=== PATIENT | female | born 1955 | race Caucasian/White ===

== ENCOUNTER 2017-07-12 15:48 | Emergency (ER) | payer BC ==
[~2017-07-12] VITALS: Ht 162.6 cm; Wt 80.7 kg
[~2017-07-12 15:48] MED LIST: ASPIRIN81 MG PO; BYSTOLIC10 MG PO; DOXEPIN PO; LITHIUM PO; LORTAB 7.51 EA GT; LOSARTAN POTASS25 MG PO; METFORMIN HCL500 MG PO; SIMVASTATIN20 MG PO; TRIAZOLAM PO; Z.0.BYSTOLIC10 MG PO; Z.0.EFFEXOR XR150 MG PO; Z.0.LOVENOX40 MG/0.4 SQ; Z.0.VESICARE10 MG PO
--- OUTSIDE RECORDS SUMMARY | 2017-07-12 15:51 | XMS REPORT | Clinical Summary ---
Author Author [facility] Organization [facility] Address Unknown Phone Unavailable Care Team Providers Care Hose Inspector Name Role Phone Asked, Given PCP Unavailable Allergies No Known Allergies Current Medications Prescription Sig. Disp. Refills Start End Date Status Date venlafaxine XR Take 300 mg by mouth Active (EFFEXOR-XR) 150 MG 24 hr daily. capsule lithium 150 MG capsule Take 300 mg by mouth Active daily. nebivolol (BYSTOLIC) 10 Take 10 mg by mouth Active MG tablet daily. metFORMIN (GLUCOPHAGE) Take 500 mg by mouth. Active 500 MG tablet losartan (COZAAR) 50 MG Take 50 mg by mouth Active tablet daily. aspirin (ECOTRIN) 81 MG Take 81 mg by mouth Active enteric coated tablet daily. Active Problems Problem Noted Date Chest pain 11/04/2015 Family History Medical History Relation Name Comments No Known Problems Mother Relation Name Status Comments Father DM Mother Social History Tobacco Use Types Packs/Day Years Used Date Current Every Day Smoker Cigarettes Tobacco Cessation: Ready to Quit: Yes; Counseling Given: Yes Comments: 5 cigaret daily pt stated Alcohol Use Drinks/Week oz/Week Comments No Sex Assigned at Date Recorded Not on file Last Filed Vital Signs Not on file Plan of Treatment Not on file Implants Implanted Type Area General Road Production Manager Device Expiration Model / Identifier Date Serial / Lot Device Vasclr Clsr Vasoactive Surgical DAIG EDSON 08/02/2016 [id number] / Intstnl Peptd 6fr Angio-Seal - Implants; / [id number] Expanders; [id number] Implanted: 11/04/2015 (Quantity not Extenders; on file) Surgical Wires Results Not on fileafter 07/11/2016 Insurance Payer Benefit Subscriber ID Type Phone Address Plan / Group [facility] [id number] HMO/PPO THCARE CHOICE/CHO ICE + [facility] EXCHANGE [facility] [id number] Exchange [employer] [place]
--- OUTSIDE RECORDS SUMMARY | 2017-07-12 15:51 | XMS REPORT ---
Author Author [facility] Address Unknown Phone Unavailable Care Team Providers Care Oracle Engineer Name Role Phone ENMA SEE Unavailable Unavailable Problems This patient has no known problems. Allergies, Adverse Reactions, Alerts This patient has no known allergies or adverse reactions. Medications This patient has no known medications. Results Test Description Test Time Test Comments Text Results Atomic Results Result Comments CERVICAL SPINE 4 OR 5 VIEWS [place] [address] Patient Name: WOLFGANG SPENCER MR #: [id number] : 1955 Age/Sex: 61/F Req #: [id number] [facility] Physician: Ordered by: ENMA SEE MD Report #: [id number] Location: [facility] Room/Bed: Procedure: [id number] DX/CERVICAL SPINE 4 OR 5 VIEWS Exam Date: 03/10/17 Exam Time: 1225 REPORT STATUS: Signed PROCEDURE: CERVICAL SPINE COMPLETE TECHNIQUE: AP, lateral, open mouth and oblique views cervical spine totaling 5 radiographs INDICATION: Neck pain COMPARISON: None. FINDINGS: Cervical spine evaluated from the skull base through the cervicothoracic junction. Loss of normal cervical lordosis. Disc space narrowing at C3-C4, C4-C5, C6-C7 with associated anterior osteophytosis. C5-C6 and C6-C7 facet and uncovertebral arthropathy with C6-C7 left neural foramen joint space narrowing. Regional soft tissues are normal. CONCLUSION: Multilevel degenerative disc disease, facet and uncovertebral arthropathy resulting in neural foramen stenosis. Consider MRI in the clinical setting of radiculopathy. Dictated by: Zachariah Perez M.D. on 03/10/2017 at 12:50 Electronically approved by: Zachariah Perez M.D. on 03/10/2017 at 12:50 Dictated By: ZACHARIAH PEREZ MD 1250 Transcribed By: BRIJESH on 03/10/17 1250 COPY TO: ENMA SEE MD
[2017-07-12] MEDS ORDERED: SODIUM CHLORIDE 0.9% 1000ML 1,000 ML IV ONE ×2 (16:15→21:15)
[2017-07-12 16:31] LABS: BASOPHILS # (AUTO) 0.1 (0.0-0.1); BASOPHILS % 0.7 % (0.0-1.0); EOSINOPHILS # (AUTO) 0.2 (0.0-0.4); EOSINOPHILS % 1.7 % (0.0-6.0); HEMATOCRIT 37.2 % (34.2-44.1); HEMOGLOBIN 11.5 g/dL (12.0-16.0); LYMPHOCYTES # (AUTO) 2.1 (1.0-3.2); LYMPHOCYTES % 19.5 % (18.0-39.1); MEAN CORPUSCULAR HEMOGLOBIN 27.6 pg (28-32); MEAN CORPUSCULAR HGB CONC 30.9 g/dL (31-35); MEAN CORPUSCULAR VOLUME 89.4 fL (81-99); MONOCYTES # (AUTO) 0.5 (0.2-0.8); MONOCYTES % 4.6 % (4.4-11.3); PLATELET COUNT 435 x10e3/uL (140-360); RED BLOOD COUNT 4.16 x10e6/uL (3.6-5.1); RED CELL DISTRIBUTION WIDTH 14.8 % (11.7-14.4)
[2017-07-12 16:38] LABS: INR 0.85; PARTIAL THROMBOPLASTIN TIME 26.7 seconds (23.8-35.5)
[2017-07-12 16:46] LABS: ALANINE AMINOTRANSFERASE 17 IU/L (0-55); ALBUMIN 3.6 g/dL (3.5-5.0); ALKALINE PHOSPHATASE 89 IU/L (40-150); BLOOD UREA NITROGEN 10 mg/dL (7-26); BUN/CREATININE RATIO 11 (6-25); CALCIUM 9.2 mg/dL (8.4-10.2); CARBON DIOXIDE 23 mmol/L (22-29); CHLORIDE 109 mmol/L (98-107); CREATININE, SERUM 0.88 mg/dL (0.57-1.11); EST GLOMERULAR FILTRATION RATE > 60 ML/MIN (60-); GLUCOSE 122 mg/dL (74-118); MAGNESIUM 1.7 MG/DL (1.3-2.1); PHOSPHORUS 3.7 MG/DL (2.3-4.7); SODIUM 143 mmol/L (136-145)
--- NOTE | 2017-07-12 17:27 | Diagnostic Imaging Report ---
PROCEDURE: Frontal and lateral views of the chest. COMPARISON: 07/29/16 INDICATIONS: CHEST PAINS FINDINGS: Lines/tubes: None. Lungs: The lungs are well inflated and clear. There is no evidence of pneumonia or pulmonary edema. Pleura: There is no pleural effusion or pneumothorax. Heart and mediastinum: The heart and the mediastinum are normal. Bones: No acute bony abnormality. Left humeral head anchor screws are again seen. IMPRESSION: 1. No acute cardiopulmonary disease. Dictated by: Macario Atkins M.D. on 07/12/2017 at 17:36 Electronically approved by: Macario Atkins M.D. on 07/12/2017 at 17:36
--- NOTE | 2017-07-12 17:42 | Diagnostic Imaging Report ---
ADDENDUM #1 Mildly patulous esophagus with wall thickening. Recommend GI consult. Signed by: Dr. Macario Atkins MD on 07/12/2017 6:31 PM ORIGINAL REPORT EXAM: CT Chest WITH contrast (PE Protocol) INDICATION: \S\Rule out Pulmonary Embolism \[id number] \S\1709 \S\N COMPARISON: None TECHNIQUE: Chest was scanned utilizing a multidetector helical scanner from the lung apex through the level of the diaphragm after administration of IV contrast. Thin section reconstructions were obtained with special concentration on the pulmonary arteries. Coronal and sagittal reformations were obtained. Pulmonary embolism protocol was performed. IV CONTRAST: 100 mL of Isovue-370 COMPLICATIONS: None RADIATION DOSE: Total DLP: 514.1 mGy*cm Estimated effective dose: (DLP x 0.014 x size factor) mSv CTDIvol has been reviewed. It is below the limits set by the Radiation Protocol Committee (RPC). FINDINGS: LINES/ TUBES: None. LUNGS AND AIRWAYS: No filling defect is identified within the pulmonary arteries to the segmental level. The lungs are unremarkable. Airways are normal. PLEURA: The pleural spaces are clear. Bilateral posterior lower lobe mild pleural thickening/irregularity, right more than left, which could represent subsegmental atelectasis. HEART AND MEDIASTINUM: Heterogeneous thyroid gland with an approximately 1.4 cm hypodense nodule in the isthmus. No mediastinal, hilar or axillary lymphadenopathy. Nonspecific subcentimeter mediastinal and hilar lymph nodes. The heart is normal in size.. There is no pericardial effusion. . Main pulmonary artery measures 2.4 cm in diameter and the ascending aorta measures 3 cm. UPPER ABDOMEN: Unremarkable BONES: The visualized bony thorax is within normal limits. Left humeral head anchor screws. SOFT TISSUES: Unremarkable. IMPRESSION: No evidence of pulmonary embolism. Thyroid nodule. Recommend further evaluation with nonurgent thyroid ultrasound. Signed by: Dr. Macario Atkins MD on 07/12/2017 5:39 PM
[2017-07-12] MEDS ORDERED: FAMOTIDINE 20 MG/2 ML VIAL IV STA (18:05)
[2017-07-12] MEDS ORDERED: MORPHINE SULFATE 2 MG/ML SYR IV STA (18:09)
[2017-07-12] MEDS ORDERED: SUCRALFATE 1 GM/10 ML SUSP NG ONE (18:30)
[2017-07-12] MEDS ORDERED: METOCLOPRAMIDE HCL 10 MG/2ML VIAL IV ONE (18:30)
[2017-07-12] MEDS ORDERED: KETOROLAC TROMETHAMINE 30 MG/ML VIAL IV ONE (18:45)
[2017-07-12] MEDS ORDERED: SODIUM CHLORIDE 0.9% 1000ML 1,000 ML ONE (19:12)
[2017-07-12] MEDS ORDERED: SODIUM CHLORIDE 0.9% 1000ML 1,000 ML IV SCH (19:15)
[2017-07-12] MEDS ORDERED: SODIUM CHLORIDE 0.9% 50ML 50 ML ONE (20:14)
[2017-07-12] MEDS ORDERED: IOPAMIDOL 370 MG/ML 200 ML INFUS..BTL INJ ONE (20:14)
--- NOTE | 2017-07-12 20:43 | Diagnostic Imaging Report ---
EXAM: Thyroid Ultrasound INDICATION: \S\Thyroid Nodule \S\N COMPARISON: Same-day chest CT. TECHNIQUE: Transverse and sagittal images were obtained of the thyroid gland. FINDINGS: Thyroid gland: Size: Right lobe 5.9 x 2.6 x 2.4 cm, enlarged in size Left lobe 5.4 x 1.7 x 2 cm, Normal in size Isthmus 0.5 cm, Normal in size Appearance: Heterogeneous echotexture without increased vascularity Masses/Nodules: Right lobe: * Superior pole 0.8 x 0.8 x 0.9 cm nodule, predominantly cystic (TR 2) * Interpolar 1.4 x 1.1 x 2.1 cm nodule, predominantly solid, isoechoic with macrocalcification (TR 4) * Inferior pole 1.5 x 0.8 x 1.6 cm nodule, mixed cystic and solid with isoechoic solid components (TR 2) Left lobe: * Interpolar 2 x 1.4 x 1.5 cm nodule, predominantly solid, isoechoic (TR 3) * Interpolar 1.7 x 1.6 x 1.4 cm nodule, solid and isoechoic, taller more than wide (TR 4) * Inferior pole 1.3 x 1 x 0.7 cm nodule, predominantly cystic (TR 2) Isthmus: * Inferior pole 1.9 x 1 x 1.9 cm nodule, predominantly cystic (TR 2) Parathyroid: No focal parathyroid masses. IMPRESSION: Multiple thyroid nodules as detailed above. A nodule in the left lobe meets criteria for FNA (left #2). Recommend follow-up ultrasound in 12 months for some of the remaining nodules. Signed by: DR. Cresencio Ramesh MD on 07/12/2017 8:39 PM
[2017-07-12 22:47] VITALS: BP 95/65
== END 2017-07-12 23:02 | disposition home or self-care (01) ==
LOC: ER 15:48
DX: R07.89 Other chest pain (principal); E04.1 Nontoxic single thyroid nodule; I10 Essential (primary) hypertension
CPT/HCPCS: 36415; 71046; 71260; 76536; 80053; 82948; 83605; 83735; 83880; 84100; 84443; 84484; 85025; 85379; 85610; 85730; 93005; 99284; J1885; J2765; J7030; Q9967

== ENCOUNTER → 2017-09-20 | Day surgery (SDC) | payer BC ==
[~2017-09-20] MED LIST changes: +ATENOLOL50 MG PO; +FENTANYL CITRATE/PF 100MCG/2 ML INJ ONE; +MIDAZOLAM HCL 2 MG/2 ML VIAL ONE; +MORPHINE SULFATE 2 MG/ML SYR ONE; +PANTOPRAZOLE SO40 MG PO; +PLAVIX75 MG PO; +PROPOFOL IV EMULSION 10 MG/ML 50 ML VIAL ONE; +VIT B12 INJ; +VIT D PO
--- OUTSIDE RECORDS SUMMARY | 2017-09-20 11:40 | XMS REPORT | Clinical Summary ---
Author Author [facility] Organization [facility] Address Unknown Phone Unavailable Care Team Providers Care Paradichlorobenzene Tender Name Role Phone Asked, Given PCP Unavailable [...] Not on file Implants Implanted Type Area Dispatcher Maintenance Device Expiration Model / Identifier Date Serial / Lot Device Vasclr Clsr Vasoactive Surgical DAIG EDSON 08/02/2016 [id number] / Intstnl Peptd 6fr Angio-Seal - Implants; / [id number] Expanders; [id number] Implanted: 11/04/2015 (Quantity not Extenders; on file) Surgical Wires Results Not on fileafter 09/19/2016 Insurance Payer Benefit Subscriber ID Type Phone Address Plan / Group [facility] xxxxxxxxx HMO/PPO THCARE CHOICE/CHO ICE + [facility]HC EXCHANGE [facility] x[facility] Exchange [employer] Home: [id number] [place] [address]
--- OUTSIDE RECORDS SUMMARY | 2017-09-20 11:40 | XMS REPORT | Continuity of Care Document ---
Author Author [facility] Organization [facility] Address [address] [place] [address] Phone Unavailable Care Team Providers Care Can Maker Name Role Phone ENMA SEE MD PCP Insurance Providers Guarantor Wolfgang Spencer Address [address] [place] [address] Email [email or web address] Payer Blue [employer] Exchange Policy Number [id number] Subscriber's Name Wolfgang Spencer Relationship 18 Self / Same As Patient Group Number [id number] Effective Date 17 Expiration Date 16 Advance Directives Directive Response Recorded Date/Time Does the patient have an advance directive? No 07/12/17 5:18pm If yes, is advance directive on file with [facility]? No 01/30/12 10:10am If not on file with [facility] will patient provide a copy? No 07/12/17 5:18pm Do you have a Directive to Physician? No 07/12/17 5:18pm Do you have a Medical Power of Autoglazier? No 07/12/17 5:18pm Do you have an out of hospital Do Not Resuscitate Order? No 07/12/17 4:59pm Do you have any special needs we should be aware of? No 07/12/17 4:59pm Do you have a support person here with you today? Yes 07/12/17 5:18pm Did patient receive Notice of Privacy Practices? Yes 07/12/17 4:59pm Did patient receive patient rights and responsibilities? Yes 07/12/17 4:59pm Problems No problem information available. Medications Current Home Medications Medication Dose Units Route Directions Days Qty Instructions Start Date Aspirin 81 Mg Tab.chew 81 Mg Oral Daily Doxepin Oral As Needed as needed for Sleep [place] 300 Mg Oral Twice A Day Metformin Hcl 500 Mg Tablet 500 Mg Oral Twice A Day 60 Tab Simvastatin 20 Mg Tablet 20 Mg Oral Today At 9:00PM Venlafaxine Hcl (Effexor Xr) 150 Mg Cap.sr.24h 150 Mg Oral Daily Past Home Medications Medication Directions Ordered Status Acetaminophen/Hydrocodone (Lortab 7.5) 1 Ea Tab, 1 Ea G Tube Every 4 Hours as needed Discontinued Enoxaparin Sodium (Lovenox) 40 Mg/0.4 Ml Disp.syrin, 40 Mg Sub-Q Daily Discontinued Losartan Potassium 25 Mg Tablet, 50 Mg Oral Daily Discontinued Nebivolol Hcl (Bystolic) 10 Mg Tablet, 10 Mg Oral Daily Discontinued Nebivolol Hcl (Bystolic) 10 Mg Tablet, 10 Mg Oral Daily Discontinued Solifenacin Succinate (Vesicare) 10 Mg Tablet, 10 Mg Oral Daily Discontinued Triazolam 0.25 Mg Tablet, 0.25 Mg Oral Bedtime Discontinued Social History Social History Problem Response Recorded Date/Time Onset Date Status Hx Psychiatric Problems Yes 01/30/2012 10:10am Not Applicable Not Applicable Hx Depression Yes 01/30/2012 10:10am Not Applicable Not Applicable Smoking Status Start Date Stop Date Former smoker Hospital Discharge Instructions No hospital discharge instruction information available. Plan of Care Discharge Date 07/12/17 11:02pm Disposition HOME, SELF-CARE Condition at Discharge Stable Instructions/Education Provided Chest Pain - Noncardiac Thyroid Scan Forms Provided Work/School Excuse Prescriptions See Medication Section Referrals ENMA SEE MD Order Date: Call for an appointment Address: [address] [place] [id number] Additional Instructions/Education DC HOME FOLLOW UP WITH PCP TAKE MEDS DIRECTED RETURN TO THE ER WITH ANY EMERGENT CONDITIONS Functional Status No functional status information available. Allergies, Adverse Reactions, Alerts Allergen Type Severity Reaction Status Last Updated PLASTIC TAPE Allergy Mild RASH Active 11/24/09 Immunizations No immunization information available. Vital Signs Acute Vital Signs Vital Response Date/Time Temperature (Fahrenheit) 98.2 degrees F (97.6 - 99.5) 07/12/2017 10:47pm Pulse Pulse Rate (adult) 72 bpm (60 - 90) 07/12/2017 10:47pm Respiratory Rate 12 bpm (12 - 24) 07/12/2017 10:47pm Blood Pressure 95/65 mm Hg 07/12/2017 10:47pm Height 5 ft 4 in 07/12/2017 3:57pm Weight 178 lb 07/12/2017 3:57pm Body Mass Index 30.6 kg/m^2 07/12/2017 3:57pm Results Laboratory Results Test Name Result Units Flags Reference Collection Date/Time Result Date/ Time Comments White Blood Count 10.95 x10e3/uL H 4.8-10.8 07/12/2017 4:15pm 2017 4:31pm Red Blood Count 4.16 x10e6/uL 3.6-5.1 07/12/2017 4:15pm 07/12/2017 4: 31pm Hemoglobin 11.5 g/dL L 12.0-16.0 07/12/2017 4:15pm 07/12/2017 4:31pm Hematocrit 37.2 % 34.2-44.1 07/12/2017 4:15pm 07/12/2017 4:31pm Mean Corpuscular Volume 89.4 fL 81-99 07/12/2017 4:1507/12/2017 4: 31pm Mean Corpuscular Hemoglobin 27.6 pg L 28-32 07/12/2017 4:15pm 2017 4:31pm Mean Corpuscular Hemoglobin Concent 30.9 g/dL L 31-35 07/12/2017 4:15pm 07/12/2017 4:31pm Red Cell Distribution Width 14.8 % H 11.7-14.4 07/12/2017 4:15pm 2017 4:31pm Platelet Count 435 x10e3/uL H 140-360 07/12/2017 4:15pm 07/12/2017 4: 31pm Neutrophils (%) (Auto) 73.0 % 38.7-80.0 07/12/2017 4:15pm 07/12/2017 4: 31pm Lymphocytes (%) (Auto) 19.5 % 18.0-39.1 07/12/2017 4:15pm 07/12/2017 4: 31pm Monocytes (%) (Auto) 4.6 % 4.4-11.3 07/12/2017 4:15pm 07/12/2017 4: 31pm Eosinophils (%) (Auto) 1.7 % 0.0-6.0 07/12/2017 4:15pm 07/12/2017 4: 31pm Basophils (%) (Auto) 0.7 % 0.0-1.0 07/12/2017 4:15pm 07/12/2017 4:31pm IM GRANULOCYTES % 0.5 % 0.0-1.0 07/12/2017 4:15pm 07/12/2017 4:31pm Neutrophils # (Auto) 8.0 H 2.1-6.9 07/12/2017 4:15pm 07/12/2017 4: 31pm Lymphocytes # (Auto) 2.1 1.0-3.2 07/12/2017 4:15pm 07/12/2017 4:31pm Monocytes # (Auto) 0.5 0.2-0.8 07/12/2017 4:15pm 07/12/2017 4:31pm Eosinophils # (Auto) 0.2 0.0-0.4 07/12/2017 4:15pm 07/12/2017 4:31pm Basophils # (Auto) 0.1 0.0-0.1 07/12/2017 4:15pm 07/12/2017 4:31pm Absolute Immature Granulocyte (auto 0.06 x10e3/uL 0-0.1 07/12/2017 4: 15pm 07/12/2017 4:31pm Prothrombin Time 12.0 seconds 11.9-14.5 07/12/2017 4:15pm 07/12/2017 4: 42pm Prothromb Time International Ratio 0.85 07/12/2017 4:15pm 2017 4:42pm Oral Anticoagulant Therapy INR Values: 1. Low Intensity Therapy 1.5 - 2.0 2. Moderate Intensity Therapy 2.0 - 3.0 3. High Intensity Therapy(1) 2.5 - 3.5 4. High Intensity Therapy(2) 3.0 - 4.0 5. Panic Value INR > 5.0 Activated Partial Thromboplast Time 26.7 seconds 23.8-35.5 07/12/2017 4: 15pm 07/12/2017 4:42pm D-Dimer Quantitative (PE/DVT) 0.55 ug/mLFEU H 0.00-0.45 07/12/2017 4: 15pm 07/12/2017 4:42pm As with all in vitro diagnostic tests, the test results should be interpreted by the physician in conjunction with clinical findings and other test results. Test results are reported in NEW D-dimer units(ug/mLFEU). Sodium Level 143 mmol/L 136-145 07/12/2017 4:15pm 07/12/2017 4:52pm Potassium Level 4.0 mmol/L 3.5-5.1 07/12/2017 4:15pm 07/12/2017 4:52pm Chloride Level 109 mmol/L H 98-107 07/12/2017 4:15pm 07/12/2017 4:52pm Carbon Dioxide Level 23 mmol/L 22-29 07/12/2017 4:15pm 07/12/2017 4: 52pm Anion Gap 15.0 mmol/L 8-16 07/12/2017 4:15pm 07/12/2017 4:52pm Blood Urea Nitrogen 10 mg/dL 7-07/12/2017 4:15pm 07/12/2017 4:52pm Creatinine 0.88 mg/dL 0.57-1.11 07/12/2017 4:15pm 07/12/2017 4:52pm BUN/Creatinine Ratio 11 6-25 07/12/2017 4:15pm 07/12/2017 4:52pm Estimat Glomerular Filtration Rate > 60 ML/MIN 60- 07/12/2017 4:15pm 4:52pm Ranges were taken from the National Kidney Disease Education Program and the National Kidney Foundation literature. Reference ranges: 60 or greater: Normal 16-59 (for 3 consecutive months): Chronic kidney disease 15 or less: Kidney failure Glucose Level 122 mg/dL H 74-118 07/12/2017 4:15pm 07/12/2017 4:52pm Calcium Level 9.2 mg/dL 8.4-10.2 07/12/2017 4:15pm 07/12/2017 4:52pm Bedside Glucose 135 mg/dL H 70-120 07/12/2017 4:15pm 07/12/2017 4:27pm Meter ID: [id number] Lactic Acid Level 14.9 MG/DL 4.5-19.8 07/12/2017 4:26pm 07/12/2017 4: 53pm Phosphorus Level 3.7 MG/DL 2.3-4.7 07/12/2017 4:15pm 07/12/2017 4:52pm Magnesium Level 1.7 MG/DL 1.3-2.1 07/12/2017 4:15pm 07/12/2017 4:52pm Total Bilirubin 0.3 mg/dL 0.2-1.2 07/12/2017 4:15pm 07/12/2017 4:52pm Aspartate Amino Transf (AST/SGOT) 19 IU/L 5-34 07/12/2017 4:15pm 2017 4:52pm Alanine Aminotransferase (ALT/SGPT) 17 IU/L 0-55 07/12/2017 4:15pm 12/2017 4:52pm Total Protein 7.2 g/dL 6.5-8.1 07/12/2017 4:15pm 07/12/2017 4:52pm Albumin 3.6 g/dL 3.5-5.0 07/12/2017 4:15pm 07/12/2017 4:52pm Globulin 3.6 g/dL H 2.3-3.5 07/12/2017 4:15pm 07/12/2017 4:52pm Albumin/Globulin Ratio 1.0 0.8-2.0 07/12/2017 4:15pm 07/12/2017 4: 52pm Alkaline Phosphatase 89 IU/L 40-150 07/12/2017 4:15pm 07/12/2017 4: 52pm B-Type Natriuretic Peptide 12.7 pg/mL 0-100 07/12/2017 4:10pm 2017 4:53pm Troponin I 0.009 ng/mL 0-0.300 07/12/2017 6:30pm 07/12/2017 7:06pm Thyroid Stimulating Hormone (TSH) 0.339 uIU/mL L 0.350-4.940 07/12/2017 6 :30pm 07/12/2017 8:08pm Procedures Procedure Status Date Provider(s) EGD BIOPSY SINGLE/MULTIPLE Completed 11/26/16 TRAVIS WEBBER MD COLONOSCOPY W/LESION REMOVAL Completed 11/26/16 TRAVIS WEBBER MD COLONOSCOPY W/LESION REMOVAL Completed 11/26/16 TRAVIS WEBBER MD X-ray of chest, two views Active 07/12/17 SCOTT ALBERTS MD Computed tomography of chest with contrast Active 07/12/17 SCOTT ALBERTS MD US thyroid Active 07/12/17 SCOTT ALBERTS MD Encounters Encounter Location Arrival/Admit Date Discharge/Depart Date Attending Provider Departed Emergency Room [facility] 07/12/17 3:48pm 11:02pm SCOTT ALBERTS MD Registered Clinic [facility] 03/10/17 12:05pm ENMA SEE MD Registered Surgical Day Care [facility] 11/26/16 11:30am TRAVIS WEBBER MD
--- NOTE | 2017-09-21 07:55 | Operative Report ---
DATE OF PROCEDURE: September 20, 2017 REFERRING PHYSICIAN: Dr. Leobardo Tracy PROCEDURE PERFORMED: Esophagogastroduodenoscopy with biopsies. INDICATIONS FOR PROCEDURE: History of submucosal nodule, stomach. MEDICATION: Patient was done under MAC. Please see anesthesiologist's note. PROCEDURE: With patient in left lateral decubitus position, flexible fiberoptic Olympus gastroscope was introduced into the esophagus without any difficulty. There was some patchy erythema noted in distal esophagus. A minute tongue of velvety red mucosa was noted to extend proximally from the GE junction. No biopsies were obtained as this was biopsied approximately 1 year ago and was unremarkable. The scope was then advanced with ease into the stomach traversing a small sliding hiatal hernia. The mucosa overlying the antrum and the body revealed some diffuse erythema and moderate edema and biopsies were obtained, sent to stain for H. pylori. The pylorus was of normal contour and shape, was intubated with ease and the scope was advanced all the way to the 2nd portion of the duodenum. The scope was then withdrawn slowly. Mucosa overlying the proximal 2nd portion as well as the duodenal bulb was grossly unremarkable. The scope was then withdrawn back into the stomach and retroflexed, and the fundus appeared to be within normal limits. The previously described submucosal nodule was noted and that was extensively biopsied. The scope was then straightened out. It was subsequently withdrawn. Patient tolerated the procedure well. IMPRESSION 1. Distal esophagitis, mild. 2. Small sliding hiatal hernia. 3. Gastritis biopsied. Biopsies sent to stain for H. pylori. 4. Submucosal nodule upper body posterior wall extensively biopsied. PLAN: Follow up histology. Increase Protonix to 40 mg one p.o. a.c. b.i.d. Job#: [id number] DG cc:LEOBARDO TRACY MD
== END | disposition home or self-care (01) ==
LOC: OR 11:38
PROVIDERS: ATTEND Internal Medicine Gastroenterology
DX: K29.70 Gastritis, unspecified, without bleeding (principal); K31.7 Polyp of stomach and duodenum; K31.89 Other diseases of stomach and duodenum; K20.9 Esophagitis, unspecified; K44.9 Diaphragmatic hernia without obstruction or gangrene; K21.9 Gastro-esophageal reflux disease without esophagitis; E11.9 Type 2 diabetes mellitus without complications; I10 Essential (primary) hypertension; F31.9 Bipolar disorder, unspecified; Z91.048 Other nonmedicinal substance allergy status; Z79.82 Long term (current) use of aspirin; Z87.891 Personal history of nicotine dependence
CPT/HCPCS: 43239; J2250; J2270

== ENCOUNTER 2017-10-16 11:46 | Inpatient (IN) | payer BC ==
[~2017-10-16] VITALS: Ht 162.6 cm; Wt 83.1 kg
[2017-10-16] VITALS (12 sets, daily range): BP systolic 79–114; BP diastolic 49–76
[~2017-10-16 11:46] MED LIST changes: -FENTANYL CITRATE/PF 100MCG/2 ML INJ ONE; -MIDAZOLAM HCL 2 MG/2 ML VIAL ONE; -MORPHINE SULFATE 2 MG/ML SYR ONE; -PROPOFOL IV EMULSION 10 MG/ML 50 ML VIAL ONE
--- OUTSIDE RECORDS SUMMARY | 2017-10-16 11:49 | XMS REPORT | Clinical Summary ---
Author Author [facility] Organization [facility] Address Unknown Phone Unavailable Care Team Providers Care Research Technologist Name Role Phone Asked, Given PCP Unavailable [...] Not on file Implants Implanted Type Area Alkylation Operator Device Expiration Model / Identifier Date Serial / Lot Device Vasclr Clsr Vasoactive Surgical DAIG EDSON 08/02/2016 [id number] / Intstnl Peptd 6fr Angio-Seal - Implants; / [id number] Expanders; [id number] Implanted: 11/04/2015 (Quantity not Extenders; on file) Surgical Wires Results Not on fileafter 10/15/2016 Insurance Payer Benefit Subscriber ID Type Phone Address Plan / Group [facility] xxxxxxxxx HMO/PPO THCARE CHOICE/CHO ICE + UHC EXCHANGE [facility] xxxxxxxxx Exchange [employer] Home: [id number] [place] [address]
[2017-10-16] MEDS ORDERED: NALOXONE HCL INJ 0.4 MG/ML AMP IV ONE ×2 (12:15→13:30)
[2017-10-16] MEDS ORDERED: SODIUM CHLORIDE 0.45% 1,000 ML IV ONE (12:15)
[2017-10-16] MEDS ORDERED: TYLENOL WITH C1 EACH PO (14:43)
[2017-10-16] MEDS ORDERED: VANCOMYCIN HCL 1 GM VIAL IV ONE (15:15)
[2017-10-16] MEDS ORDERED: SODIUM CHLORIDE FLUSH 10 ML SYR INJ PRN (16:30)
--- OUTSIDE RECORDS SUMMARY | 2017-10-16 17:39 | XMS REPORT | Clinical Summary ---
Author Author [facility] Organization [facility] Address Unknown Phone Unavailable Care Team Providers Care Film Crew Member Name Role Phone Asked, Given PCP Unavailable [...] Not on file Implants Implanted Type Area Crowning Hammer Operator Device Expiration Model / Identifier Date Serial / Lot Device Vasclr Clsr Vasoactive Surgical DAIG EDSON 08/02/2016 [id number] / Intstnl Peptd 6fr Angio-Seal - Implants; / [id number] Expanders; [id number] Implanted: 11/04/2015 (Quantity not Extenders; on file) Surgical Wires Results Not on fileafter 10/15/2016 Insurance Payer Benefit Subscriber ID Type Phone Address Plan / Group [facility] x[facility] HMO/PPO THCARE CHOICE/CHO ICE + [facility]HC [facility] x[facility] Exchange [employer] Home: [id number] [place] [address]
[2017-10-16] MEDS ORDERED: CEFAZOLIN SOD 1 GM/NS 50ML 50 ML IV SCH (18:00)
[2017-10-16] MEDS ORDERED: CEFAZOLIN SOD 1 GM in WATER STERILE 10ML VIAL 10 ML IV SCH (18:00)
[2017-10-16] MEDS ORDERED: CEFAZOLIN SOD 1 GM VIAL ONE (23:41)
[2017-10-17] VITALS (75 sets, daily range): BP systolic 59–131; BP diastolic 36–86
[2017-10-17] MEDS ORDERED: KCL 20MEQ/.9 SOD CHL 1,000 ML IV ONE (04:50)
[2017-10-17] MEDS ORDERED: SODIUM CHLORIDE 0.9% 1000ML 1,000 ML ONE ×2 (04:51→06:16)
[2017-10-17 05:20] LABS: CALCIUM 8.9 mg/dL (8.4-10.2); CHOL/HDL RATIO 3.8 (3.0-3.6); CREATININE, SERUM 2.33 mg/dL (0.57-1.11); MAGNESIUM 2.2 MG/DL (1.3-2.1); PHOSPHORUS 5.1 MG/DL (2.3-4.7)
[2017-10-17] MEDS: SODIUM CHLORIDE 0.9% 1000ML 1,000 ML IV PRN ×2 (07:00→09:00)
[2017-10-17 07:07] LABS: BASOPHILS % 0.4 % (0.0-1.0); EOSINOPHILS # (AUTO) 0.3 (0.0-0.4); EOSINOPHILS % 2.7 % (0.0-6.0); HEMATOCRIT 28.4 % (34.2-44.1); HEMOGLOBIN 8.9 g/dL (12.0-16.0); LYMPHOCYTES # (AUTO) 2.2 (1.0-3.2); LYMPHOCYTES % 20.3 % (18.0-39.1); MEAN CORPUSCULAR HEMOGLOBIN 28.3 pg (28-32); MEAN CORPUSCULAR HGB CONC 31.3 g/dL (31-35); MEAN CORPUSCULAR VOLUME 90.4 fL (81-99); MONOCYTES # (AUTO) 1.2 (0.2-0.8); MONOCYTES % 10.9 % (4.4-11.3); NEUTROPHILS # (AUTO) 6.9 (2.1-6.9); NEUTROPHILS % 65.2 % (38.7-80.0); PLATELET COUNT 284 x10e3/uL (140-360); RED BLOOD COUNT 3.14 x10e6/uL (3.6-5.1); RED CELL DISTRIBUTION WIDTH 13.2 % (11.7-14.4)
[2017-10-17 07:36] LABS: INR 1.1; PROTHROMBIN TIME 13.4 seconds (11.9-14.5)
[2017-10-17 07:37] LABS: PARTIAL THROMBOPLASTIN TIME 35.1 seconds (23.8-35.5)
[2017-10-17] MEDS ORDERED: CEFAZOLIN SOD 1 GM VIAL ONE (08:08)
[2017-10-17] MEDS: CEFAZOLIN SOD 1 GM VIAL IV SCH ×2 (08:25)
[2017-10-17] MEDS: SODIUM CHLORIDE 0.9% 1000ML 1,000 ML IV SCH ×2 (08:25→20:54)
[2017-10-17] MEDS ORDERED: ALBUMIN 5% 250ML IV ONE (10:20)
[2017-10-17] MEDS ORDERED: ALBUMIN 5% 250 ML IV SCH ×2 (10:31→14:00)
--- NOTE | 2017-10-17 10:44 | History and Physical ---
Ms. Villegas is a 62-year-old female that is not able to provide any history. On the history, admitted through the urgent care and notes from the hospital. She is 62 years old and she has a history of hypertension, diabetes, depression, bipolar disorder, hyperlipidemia, and apparently back pain. Brought to the urgent care by her after the patient was confused for several days, hallucinating, and apparently the confusion got worse. decided to bring her to the emergency room. There was no fever. No nausea or vomiting. No trauma. The patient also was not eating. PAST MEDICAL HISTORY: Hypertension, diabetes, bipolar disorder, hyperlipidemia, chronic back pain. PAST SURGICAL HISTORY: Hip surgery, hysterectomy. MEDICATIONS: She was on lithium, Tylenol No. 3, Bystolic, Flexeril, metformin. ALLERGIES: NO KNOWN DRUG ALLERGIES. SOCIAL HISTORY: Former smoker. No alcohol or drugs. Apparently, lives at home with her . PHYSICAL EXAMINATION GENERAL: Today, the patient can respond to very simple questions. VITALS: Temperature is 98.1, blood pressure 83/39. HEART: Regular rate. LUNGS: Poor inspiratory effort. ABDOMEN: Soft. BLOOD WORK: White count is 10.6, hemoglobin 8.9, hematocrit 28.4. Potassium 4, creatinine 2.33, glucose is 147. Magnesium is 2.2. Toxicology here is pending. Blood cultures are pending. Had a chest CT that shows no evidence of PE. Some thyroid nodules. Chest x-ray shows no acute findings. Thyroid ultrasound showed multiple thyroid nodules. Cervical spine x-ray shows multiple degenerative disk disease. Brain MRI with nonspecific minimal displacement of the cervical tonsils, unchanged from prior study. ASSESSMENT AND PLAN 1. Changes in mental status: Etiology is not very clear. Could be drug overdose. It could be lithium intoxication. It is not very clear. Sepsis. 2. Hypotension: Rule out sepsis. 3. Diabetes. 4. History of bipolar disorder. 5. History of hypertension. 6. Hyperlipidemia. PLAN: At the present time, is to admit the patient to the hospital. She is on IV fluids. She is on IV antibiotics. We requested critical care consult with Dr. Anderson. The patient needs a PICC line or central line to start her on Levophed with requested infectious disease consult. Neurology consult. Nephrology consult for this patient. The overall prognosis is poor. We are awaiting for central line or PICC line at the present time. Job#: [id number] RI
[2017-10-17] MEDS: ALBUMIN 5% 500 ML IV SCH (11:20)
[2017-10-17] MEDS: CEFTRIAXONE SOD 1 GM VIAL IV SCH (12:00)
--- NOTE | 2017-10-17 12:43 | Diagnostic Imaging Report ---
PROCEDURE: CHEST XRAY LINE PLACEMENT COMPARISON: [facility], DX, CHEST 2 VIEWS, 07/12/2017, 16:20. INDICATIONS: CVC PLACEMENT FINDINGS: LUNGS: No consolidations or edema. Right basilar atelectasis. PLEURA: No effusions or pneumothorax. HEART \T\ MEDIASTINUM: The heart is within normal size-limits. Right IJ central line has been placed with its tip at the cavoatrial junction. BONES \T\ SOFT TISSUES: No acute findings. [place] screws overlie the left humeral head. CONCLUSION: No acute thoracic abnormality. Acceptable position of a right IJ central line. Erick Arevalo D.O. Dictated by: Erick Arevalo D.O. on 10/17/2017 at 12:45 Electronically approved by: Erick Arevalo D.O. on 10/17/2017 at 12:45
--- NOTE | 2017-10-17 12:51 | Diagnostic Imaging Report ---
PROCEDURE:ULTRASOUND GUIDANCE FOR VASCULAR ACCESS COMPARISON:None. INDICATIONS:Central Line Placement FINDINGS:The right internal jugular vein is noted to be patent. Ultrasound guidance was utilized for access for central line placement. CONCLUSION:Patent right internal jugular vein. Successful ultrasound guidance for central line placement. Erick Arevalo D.O. Dictated by: Erick Arevalo D.O. on 10/17/2017 at 12:54 Electronically approved by: Erick Arevalo D.O. on 10/17/2017 at 12:54
--- NOTE | 2017-10-17 12:55 | Diagnostic Imaging Report ---
PROCEDURE:NON-TUNNELLED CVC CATH PLACMNT COMPARISON:None. INDICATIONS: Central Line Placement in a patient who is hypotensive COMPLICATIONS: None MEDICATIONS: 1% lidocaine BLOOD LOSS:Less than 3 cc PROCEDURE: Ultrasound was utilized for guidance to place a right IJ central line at the bedside. Local anesthesia with 1% Xylocaine was accomplished. A 21 gauge skinny needle was then placed into the internal jugular vein with ultrasound guidance. A 0.018 " wire was placed and then a micropuncture sheath. Through the micropuncture sheath a 0.035 " Amplatz superstiff wire was placed. Dilatation was accomplished and a 7 [place] Arrow triple-lumen 15 cm long central line was placed over the wire. Each lumen freely aspirates and flushes forward. Post placement chest x-ray was ordered. CONCLUSION: Successful ultrasound guided central line placement. Erick Arevalo D.O. Dictated by: Erick Arevalo D.O. on 10/17/2017 at 12:57 Electronically approved by: Erick Arevalo D.O. on 10/17/2017 at 12:57
[2017-10-17 13:47] LABS: FERRITIN 84.62 ng/mL (4.63-204.00)
[2017-10-17] MEDS ORDERED: ALBUMIN 5% 250ML IV SCH (14:00)
--- NOTE | 2017-10-17 14:06 | Consultation ---
DATE OF CONSULTATION: CRITICAL CARE CONSULTATION CHIEF COMPLAINT: Altered mental status. REASON FOR THE CONSULT: ICU management. CHIEF COMPLAINT: Altered mental status. HISTORY OF PRESENT ILLNESS: Ms. Villegas is a 62-year-old female who presented to the emergency room with altered mental status. Patient is still not able to give the history. Source of history is the chart. She has history of hypertension, diabetes, bipolar disorder. Apparently was confused, brought to the urgent care by the after the patient was confused for several days and hallucinating and confused. The patient was evaluated in the emergency room and was admitted to ICU. She was found to be in acute renal failure. She was at freestanding [facility] ER. She denies any chest pain, nausea, vomiting. She was on lithium per the history. REVIEW OF SYSTEMS: Unable to elicit a detailed review of systems because of patient's mental status. PAST MEDICAL HISTORY: Hypertension, diabetes, bipolar disorder, chronic back pain. PAST SURGICAL HISTORY: Hysterectomy. MEDICATION: She was on lithium per the chart. FAMILY HISTORY AND SOCIAL HISTORY: She does not smoke. She does not drink. A former smoker per the chart. PHYSICAL EXAMINATION: VITALS: Temperature 98.1, pulse of 80, blood pressure 94/53. She has been hypotensive. Source is not very clear for the hypotension. HEENT: Head atraumatic, normocephalic. Pupils are reactive. NECK: Supple. CHEST: Clear to auscultation bilaterally. No wheezing. No crackles. HEART: S1/S2 audible. ABDOMEN: Soft. EXTREMITIES: No clubbing, cyanosis or edema. NEUROLOGICALLY: She is still confused. Chest x-ray was done at the emergency room at [facility]. Films are not available, but it is showing no acute abnormalities. She underwent a CT head which showed low-lying cerebral tonsils but no evidence of hemorrhage. She also had a CT cervical spine with contrast which was also negative, showing thyroid nodules. She had a lumbar spine which was negative as well. ASSESSMENT: Ms. Villegas is a 62-year-old female. She has been hypotensive. Etiology is not very clear. She was in acute renal failure when she came in. Her creatinine today is 2.33. Her last creatinine at the emergency room across the street shows a creatinine of 4.4, which is better now, and BUN was 38. Her urinalysis was positive for morphine, oxycodone, tricyclic and phencyclidine. Ms. Villegas is a 62-year-old female who presented to the emergency room with altered mental status, likely uremic. CURRENT PROBLEMS: 1. Acute kidney injury. 2. Confusion and encephalopathy, likely due to uremia. 3. History of bipolar disorder. Patient was on lithium as well. [place] level is pending. 4. Anemia. PLAN: 1. Agree with IV hydration. Creatinine is improving. Nephrology has been consulted. Will follow their recommendations. 2. Altered mental status likely uremic encephalopathy. CT head is negative. 3. IV antibiotics per Infectious Disease recommendation. CRITICAL CARE TIME SPENT: 45 minutes. Job#: [id number] EV
--- NOTE | 2017-10-17 14:22 | Consultation ---
DATE OF CONSULTATION: REASON FOR CONSULTATION: Altered mental status, concern for infection. HISTORY OF PRESENT ILLNESS: This is a 62-year-old white female who is confused. The patient, who has underlying history of obesity, hypertension, diabetes mellitus, bipolar disorder, chronic back pain, and hyperlipidemia, was brought by the to the urgent care center for altered mental status. The patient was evaluated there, and she was transferred here. Patient currently is admitted in the intensive care. There is no family here. Patient does not provide meaningful information. Also there are no complaints from her. She is seen lying comfortably in bed. PAST MEDICAL HISTORY: Hypertension, diabetes mellitus, obesity, bipolar disorder, hyperlipidemia, chronic back pain. PAST SURGICAL HISTORY: Hip surgery, hysterectomy. ALLERGIES: NKA. SOCIAL HISTORY: There is no smoking, drug abuse, alcohol abuse. She used to smoke before apparently. REVIEW OF SYSTEMS: Could not be obtained. LABORATORY DATA: Blood cultures are still pending. Labs: White count 10.61, hemoglobin 8.9, hematocrit 28, platelets of 284. Sodium 137, potassium 4.0, creatinine 2.33. Liver enzymes within normal limits. She had a chest CT that showed no evidence of pulmonary embolism. Thyroid nodule was noted. A chest x-ray showed no acute finding. PHYSICAL EXAMINATION GENERAL: She is alert, confused, does not seem to be in acute distress. VITALS: Stable. There is no fever since admission. HEENT: Normocephalic, not icteric. NECK: Supple. No JVD. No lymphadenopathy. No thyromegaly. CHEST: Clear bilaterally. COR: S1 and S2. ABDOMEN: Soft. Obese. No tenderness. No hepatosplenomegaly. EXTREMITIES: No edema. MEDICATIONS: List reviewed. She is on albumin, cefazolin, and potassium supplement. IMPRESSION: Altered mental status. There is no fever and no leukocytosis. I agree with blood culture. I would suggest to give her Rocephin 1 gram daily until we get the blood cultures and urine culture. I would suggest to discontinue cefazolin at the present time. Will consider a neuropsych evaluation and drug screen. Will follow with you. Job#: [id number]
--- NOTE | 2017-10-17 16:09 | Consultation ---
DATE OF CONSULTATION: October 17, 2017 NEPHROLOGY CONSULTATION REASON FOR CONSULTATION: Acute kidney injury. This is a 62-year-old female who is known to have multiple medical problems including hypertension, diabetes on metformin and recently started on losartan for blood pressure control. She is known to have bipolar and she is taking lithium and chronic pain for which she takes Tylenol No. 3 for her back pain. She is basically admitted after she was brought by her , who was complaining that she was getting more confused in the last couple of days with altered mental status. They brought her to the ER for further evaluation. A kidney function creatinine was 4.4. Thus, we are consulted. I do not have a baseline on this patient to compare with, but the patient is denying any GI or symptoms. No nausea, vomiting, or diarrhea. No abdominal pain. No chest pain. No other focal motor or sensory deficit. Today, she is alert and oriented times 3. Blood pressure has been low since admission, and she was bolused with fluids. The patient is asymptomatic. PAST MEDICAL HISTORY: As mentioned above. PAST SURGICAL HISTORY: Status post hysterectomy and tubal ligation, status post EGD. FAMILY HISTORY: Positive for hypertension. SOCIAL HISTORY: Living with her . No smoking at this time. No alcohol or IV drug abuse. ALLERGIES: PER RECORDS TO PLASTIC TAPE. PHYSICAL EXAMINATION VITAL SIGNS: Today, the blood pressure is 94/53. Heart rate is 79. Temperature is 98.1. GENERAL APPEARANCE: No acute distress times 3. HEAD, EARS, EYES, NECK: No lymphadenopathy. HEART: Regular rate and rhythm. LUNGS: Good bilateral air entry. ABDOMEN: Soft, nontender. EXTREMITIES: No edema. LABS: Today, hemoglobin 8.9. Sodium 137, potassium 4, BUN 35, creatinine 2.3 from 4.4. ASSESSMENT AND PLAN 1. Acute kidney injury. Her creatinine has been 0.8 in July 2017, so she is experiencing something acute. This could be in the setting of decrease in blood pressure with decrease in renal perfusion and also the patient was recently started on losartan by her PCP for blood pressure control, and she has been on metformin. At this time, hold BEAU inhibitor/ARB. The patient is getting IV fluids, and her creatinine is improving. Also, stop metformin. Check fractional excretion of sodium and renal ultrasound. Monitor urine output. 2. Altered mental status. Today, the patient is alert and oriented times 3. [place] level has been sent to rule out lithium toxicity. Will are going to monitor closely. 3. Hypotension. Holding her blood pressure medication for now. She was taking atenolol and losartan. She was IV bolused with fluids, and we are giving albumin. We will see if she needs pressors today if her blood pressure does not improve. Rule out sepsis, also. Pancultures have been sent. 4. Diabetes off metformin given setting of acute kidney injury. Monitor her blood sugar. 5. History of gastric ulcer, status post esophagogastroduodenoscopy. The patient is anemic now. We are going to check stool occult and iron stores. Thank you for the consult. We will update the primary team for further recommendations. BAN VALLE MD Job#: [id number]
--- NOTE | 2017-10-17 16:32 | Diagnostic Imaging Report ---
PROCEDURE:US RETROPERITONEAL ( KIDNEY ). COMPARISON:[facility], CT, CT CHEST W, 07/12/2017, 17:09. INDICATIONS:MARIA DEL CARMEN TECHNIQUE: Lester-scale and color sonographic images of the bilateral kidneys and bladder where obtained in transverse and longitudinal planes. FINDINGS: RIGHT KIDNEY: 11.3 cm, cortex 1.7 cm Cysts: None Solid masses: None Stones: None Hydronephrosis: None Echogenicity: Normal LEFT KIDNEY: 11.5 cm, cortex 1.6 cm Cysts: None Solid masses: None. Focal cortical thickening in the mid aspect of the left kidney, similar in echogenicity to the rest of the cortex, likely representing a prominent column of Chuy Stones: None Hydronephrosis: None Echogenicity: Normal Bladder: Decompressed with Ba[place] catheter in place. Incidental note is made of increase echogenicity of the visualized hepatic parenchyma, consistent with fatty infiltration. CONCLUSION: 1. Normal bilateral renal size, and echogenicity. No hydronephrosis, stones, or obstruction. 2. Focal cortical thickening of the mid aspect of the left kidney likely represents a prominent column of Chuy. Contrast enhanced CT abdomen may be obtained for further evaluation, if clinically indicated, and if renal function permits. Eren De Jesus M.D. Dictated by: Eren De Jesus M.D. on 10/17/2017 at 16:34 Electronically approved by: Eren De Jesus M.D. on 10/17/2017 at 16:34
--- NOTE | 2017-10-17 16:48 | Consultation ---
DATE OF CONSULTATION: October 17, 2017 NEUROLOGY CONSULTATION HISTORY OF PRESENT ILLNESS: Ms. Villegas is a 62-year-old woman with past medical history significant for hypertension, hyperlipidemia, diabetes mellitus, bipolar disorder and chronic back pain, admitted to [facility] on October 16, 2017, with encephalopathy. Unfortunately, the patient remains mildly confused. Therefore, history is obtained from review of the electronic medical records. Ms. Villegas was brought to a freestanding urgent care center on October 16, 2017, by her with a several-day history of progressively worsening confusion and visual hallucinations. Per the notes available in the electronic medical record system, there were no reported signs/symptoms of infection, such as: Fever, nausea, vomiting, diarrhea, cough. There was no prior trauma. The patient's did report decreased oral intake for several days prior to admission. On review of the documentation from the urgent care center, there were several significant findings on the patient's laboratory data. A comprehensive metabolic panel revealed a creatinine of 4.4. Ms. Villegas is not known to have kidney disease. The white blood cell count was 12.00 with a right shift. The hemoglobin and hematocrit were 10.5 and 30.0, respectively. The platelet count was 311. A urine drug screen was positive for morphine, oxycodone, oxazepam, tricyclic antidepressants, and PCP. Due to the presence of acute kidney injury, the patient was directly admitted to the intensive care unit at [facility] for further evaluation and treatment of her symptoms. REVIEW OF SYSTEMS: Unable to obtain as the patient remains mildly confused. PAST MEDICAL HISTORY: Hypertension, hyperlipidemia, diabetes mellitus, bipolar disorder, chronic back pain. PAST SURGICAL HISTORY: Hip surgery, hysterectomy. PAST HOSPITALIZATIONS: Surgeries/procedures listed. FAMILY HISTORY: Noncontributory. SOCIAL HISTORY: The patient is . Ms. Villegas is not employed at this time. The patient is reported to be a former smoker. 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 She has previously attended an inpatient drug rehabilitation program. However, the patient recently relapsed. She reports her last use of prescription pain medications was August 03, 2017. HOME MEDICATIONS: Tylenol No. 3 300 mg by mouth as needed for pain, atenolol 50 mg by mouth daily, Plavix 75 mg by mouth daily, losartan 50 mg by mouth daily, metformin 500 mg by mouth twice daily, Protonix 40 mg by mouth daily, Zocor 20 mg by mouth at bedtime daily, Effexor 150 mg by mouth daily, doxepin 50 mg by mouth as needed, lithium 300 mg by mouth twice daily, vitamin B12 one injection every 2 weeks, vitamin D one tablet by mouth daily. HOSPITAL MEDICATIONS: Ceftriaxone 1 g IV every 24 hours, albumin 500 mL at 62.5 mL per hour IV every 8 hours, sodium chloride 1000 mL at 100 mL per hour IV. ALLERGIES: NO KNOWN DRUG ALLERGIES. NO KNOWN FOOD ALLERGIES. THERE IS A REPORTED ALLERGY/ADVERSE REACTION TO PLASTIC TAPE. NO KNOWN ALLERGIES TO IODINE OR OTHER CONTRAST MATERIALS. PHYSICAL EXAMINATION VITAL SIGNS: Height 64 inches, weight 183 pounds, BMI 31.4 kg per meter squared, blood pressure 83/39 mmHg, pulse 79 beats per minute, respiratory rate 20 breaths per minute, oxygen saturation 100% on 2 liters by nasal cannula. GENERAL: The patient is drowsy, arouses to verbal stimuli, does not appear distressed. Mildly obese. HEENT: Normocephalic, atraumatic. Pupils are equal, round, and reactive to light. Moist mucous membranes. NECK: Supple. No appreciable thyromegaly. No appreciable carotid bruits. CARDIOVASCULAR: S1, S2, regular rate and rhythm. No murmurs, rubs, or gallops. RESPIRATORY: Clear to auscultation bilaterally. No wheezes, rhonchi, or rales. EXTREMITIES: The skin is warm and dry. No clubbing, cyanosis, or edema. The posterior tibial and dorsalis pedis pulses are 2+ and symmetric. SKIN: No rashes or lesions. NEUROLOGIC MEMORY/ATTENTION: The patient is drowsy, arouses to verbal stimuli, oriented to person, place (hospital, city, county, state), time (month, year), but not situation. CRANIAL NERVES: Cranial nerve 1--Not tested. Cranial nerves 2, 3, 4, and 6--Pupils are equal and round, react briskly to light (from 6 mm to 3 mm), extraocular movements intact, no nystagmus. Cranial nerve 5--Sensation to light touch and pinprick is intact in the bilateral V1 through V3 distributions. Strength of the temporalis and masseter muscles is within normal limits. Cranial nerve 7--The face is symmetric, as are all facial movements. Strength is within normal limits. Cranial nerve 8--Hearing is intact to finger rub bilaterally. Cranial nerve 9, 10--The soft palate elevates equally and symmetrically. Cranial nerve 11--Normal strength of the bilateral sternocleidomastoid and trapezius muscles. Cranial nerve 12--The tongue protrudes midline and moves symmetrically from side to side. STRENGTH: Bulk is normal, and strength is 5/5 in the bilateral deltoids, biceps, triceps, wrist flexors and extensors, finger flexors and extensors, intrinsic hand muscles, hip flexors, knee flexors and extensors, ankle dorsiflexion and plantarflexion, and intrinsic foot muscles. Tone is normal. DTRS: Deep tendon reflexes are 2+ and symmetric at the triceps, biceps, brachial radialis, patellas, and Achilles. Plantar responses are flexor bilaterally. Absent clonus. SENSATION: Sensation is intact to light touch and pinprick in both arms and both legs. CEREBELLAR: Akhdti-bvzd-rrdkca and heel-dsouza movements are intact without dysmetria or other impairment. GAIT: Deferred. SPEECH: Spontaneous speech is mildly dysarthric without appreciable aphasia. Repetition is intact. INVOLUNTARY MOVEMENTS: None. PRONATOR DRIFT: None. LABORATORY DATA: Sodium 137, potassium 4.0, chloride 108, carbon dioxide 20, anion gap 13.0, BUN 35, creatinine 2.33, estimated GFR 21, NMI-ka-rcvnsbcjdc ratio 15, glucose 147, calcium 8.9, phosphorus 5.1, magnesium 2.2. Total bilirubin 0.2, AST 10, ALT 10, alkaline phosphatase 92. Total protein 5.9, albumin 3.0, globulin 2.9, plyquhy-rc-gwtwsvdq ratio 1.0. Total cholesterol 110, triglycerides 173, LDL 46, HDL 29. Iron 5, TIBC 283, percent saturation 2, transferrin 202, ferritin 84.62. The CBC with differential and platelets reveals a white blood cell count of 10.61 with a normal differential. The hemoglobin and hematocrit are 8.9 and 28.4, respectively. The platelet count is 284. PT 13.4, INR 1.10, PTT 35.1. Acetaminophen level less than 3, lithium level pending. ASSESSMENT AND PLAN: Ms. Villegas is a 62-year-old woman with an extensive past medical history, including a prior history of prescription pain medication abuse, admitted to [facility] with acute kidney injury and encephalopathy. Other than mild confusion, the patient's neurological examination is nonfocal. Her laboratory data and other diagnostic studies have been reviewed and are documented above. The cause of Ms. Jamess encephalopathy is probably multifactorial. Certainly the uremia is contributing significantly to her prior and present confusion. Given the findings on the patient's urine drug screen from the urgent care center, there is an element of substance intoxication contributing to her encephalopathy. Lastly, Ms. Villegas has been hypotensive throughout her hospitalization. There is some concern for an underlying infection. An infection of any kind may cause or exacerbate an encephalopathy. Recommendations are as follows: 1. Additional blood work will be ordered to evaluate for other possible contributors to Ms. Jamess multifactorial encephalopathy. These include: An ammonia level, TSH, vitamin B12, and RPR. 2. A CT of the brain without contrast will be ordered to evaluate for recent stroke, hemorrhage, or other acute intracranial pathology. 3. Avoid sedative/hypnotic and pain medications as these will alter the patient's sensorium. 4. Defer treatment of the remaining medical comorbidities to the primary and other services. Thank you for this consultation. I will continue to follow this patient while she remains in the hospital. Time spent: 70 minutes. Job#: [id number] EV
--- NOTE | 2017-10-17 18:45 | Diagnostic Imaging Report ---
History:Acute encephalopathy, renal failure Comparison studies:09/28/2009 CT head Technique: Axial images were obtained from the skull base to the vertex. Coronal and sagittal images reconstructed from the axial data. Image quality: Motion artifact follow-up and streak artifact limits evaluation of the skull base/posterior fossa. Findings: Scalp/skull: No abnormalities. Extra-axial spaces: No masses. No fluid collections. Brain sulci: Mildly prominent. Ventricles: Mild compensatory dilatation. No hydrocephalus. Parenchyma: A few hypodensities in the supratentorial white matter are small vessel ischemic changes. No masses, hemorrhage, acute or chronic cortical vascular insults. Sellar/suprasellar region: No abnormalities. Craniocervical junction: Patent foramen magnum. No Chiari one malformation. Incidental findings: Atherosclerotic calcifications in the carotid siphons . Impression: No acute abnormalities. Chronic findings: 1. Mild generalized volume loss. 2. Mild supratentorial white matter small vessel ischemic changes. The preliminary report was completed by the neuroradiology fellow Dr. Napoleon Mendoza. The preliminary report was reviewed and a final report issued by Dr. Avelar neuroradiologist on on 10/17/2017 at 7:45 PM. Signed by: Dr. Anel Avelar M.D. on 10/17/2017 7:45 PM
[2017-10-18] VITALS (19 sets, daily range): BP systolic 102–151; BP diastolic 50–87
[2017-10-18] MEDS: ALBUMIN 5% 500 ML IV SCH ×2 (00:29→06:09)
[2017-10-18] MEDS: SODIUM CHLORIDE 0.9% 1000ML 1,000 ML IV SCH ×3 (02:45→21:02)
[2017-10-18 06:25] LABS: ANION GAP 9.3 mmol/L (8-16); BLOOD UREA NITROGEN 11 mg/dL (7-26); BUN/CREATININE RATIO 14 (6-25); CALCIUM 9.1 mg/dL (8.4-10.2); CARBON DIOXIDE 22 mmol/L (22-29); CHLORIDE 114 mmol/L (98-107); CREATININE, SERUM 0.77 mg/dL (0.57-1.11); EST GLOMERULAR FILTRATION RATE > 60 ML/MIN (60-); GLUCOSE 117 mg/dL (74-118); MAGNESIUM 1.7 MG/DL (1.3-2.1); PHOSPHORUS 2.3 MG/DL (2.3-4.7); POTASSIUM 4.3 mmol/L (3.5-5.1); SODIUM 141 mmol/L (136-145)
--- NOTE | 2017-10-18 10:39 | Progress Note ---
DATE: October 18, 2017 Ms. Villegas is a 62-year-old female with history of diabetes, hypertension, hyperlipidemia, bipolar disorder, chronic back pain. She came to the urgent care with changes in mental status. Then she was transferred to ICU at [facility]. As per , the patient has had progressive confusion for the last few days and some hallucinations. She did not have any fever, nausea or vomiting. On admission, she was found to have a low blood pressure. The reason was not very clear. Creatinine was very elevated. PHYSICAL EXAMINATION GENERAL: At the present time, she is awake and alert. VITALS: Temperature is 99. Blood pressure is 105/50. HEART: Regular rate. LUNGS: Poor inspiratory effort. ABDOMEN: Soft. LABS: We do not have any blood work from today, except glucose is 70. RPR was nonreactive. Head CT showed no acute abnormalities. Renal ultrasound: Normal bilateral renal size. Focal cortical thickening in the left kidney. ASSESSMENT AND PLAN 1. Changes in mental status, probably due to overdose. 2. Hypotension, improving. 3. Diabetes. 4. Bipolar disorder. 5. History of hypertension. The blood pressure has been low. 6. Hyperlipidemia. 7. Chronic back pain. 8. Acute renal failure with creatinine 2.33. At the present time, the patient is doing much better. Creatinine is 0.77 and glucose is 117. Potassium is 4.3. White count is 10.6, hemoglobin 8.9, hematocrit 28.4. Blood cultures and urine culture so far have been negative. The plan at the present time is to transfer the patient to telemetry. We are waiting for TSH, ammonia level, B12. RPR was negative. Head CT was negative. We are going to avoid any hypnotic or pain medications that cause sedation. Once the patient is stable, she is going to be able to go home. All of this was discussed with the patient, and all questions were answered to satisfaction. I spent more than 30 minutes examining the patient, reviewing lab results and x-rays and discussing the plan of care. Job#: [id number]
[2017-10-18] MEDS: CEFTRIAXONE SOD 1 GM VIAL IV SCH (12:11)
[2017-10-18 17:49] LABS: PHENCYCLIDINE SCREEN,URINE NEGATIVE (NEGATIVE)
[2017-10-18 17:50] LABS: AMPHETAMINES SCREEN,URINE NEGATIVE (NEGATIVE); BENZODIAZEPINES SCREEN,URINE POSITIVE (NEGATIVE)
[2017-10-18 18:08] LABS: CREATININE,URINE RANDOM 27.62 mg/dL (47-110); SODIUM,URINE 98 mmol/L; TOTAL PROTEIN, URINE 9.8 mg/dL (1-14)
[2017-10-18 18:27] LABS: EOSINOPHIL SMEAR,URINE NONE SEEN (NONE SEEN)
[2017-10-19] VITALS (7 sets, daily range): BP systolic 143–169; BP diastolic 62–95
[2017-10-19 07:16] LABS: ANION GAP 12.8 mmol/L (8-16); BLOOD UREA NITROGEN 5 mg/dL (7-26); BUN/CREATININE RATIO 7 (6-25); CALCIUM 9.9 mg/dL (8.4-10.2); CARBON DIOXIDE 22 mmol/L (22-29); CHLORIDE 113 mmol/L (98-107); CREATININE, SERUM 0.69 mg/dL (0.57-1.11); EST GLOMERULAR FILTRATION RATE > 60 ML/MIN (60-); GLUCOSE 143 mg/dL (74-118); MAGNESIUM 1.3 MG/DL (1.3-2.1); PHOSPHORUS 2.3 MG/DL (2.3-4.7); POTASSIUM 3.8 mmol/L (3.5-5.1); SODIUM 144 mmol/L (136-145)
[2017-10-19] MEDS: SODIUM CHLORIDE 0.9% 1000ML 1,000 ML IV SCH (08:45)
[2017-10-19] MEDS: SODIUM FERRIC GLUCONATE COMPLX 125 MG in SODIUM CHLORIDE 0.9% 100 ML 100 ML IV SCH (09:00)
--- NOTE | 2017-10-19 10:14 | Progress Note ---
DATE: October 19, 2017 Ms. Villegas is a 62-year-old female with a history of hypertension, hyperlipidemia, bipolar disorder, chronic back pain, came to the emergency room with changes in mental status and hallucinations for like a week. We really think that the patient overdosed with some of her medications. She is also on lithium for bipolar disorder. On admission, she was in renal failure. She was hypotensive. At the present time, doing much better. She on the regular floor. PHYSICAL EXAMINATION GENERAL: She is awake and alert. She wants to go home. VITALS: Temperature is 98.3, blood pressure 145/74. HEART: Regular rhythm. LUNGS: Clear to auscultation. ABDOMEN: Soft. BLOOD WORK: Potassium is 3.8, creatinine is back to normal at 0.69, glucose 143. White count 10.6, hemoglobin 8.9, hematocrit 28.4. ASSESSMENT AND PLAN 1. Changes in mental status, resolved, probably due to overdose. 2. Hypotension, resolved. 3. Diabetes. 4. Bipolar disorder. 5. Hypertension. 6. Hyperlipidemia. 7. Chronic back pain. 8. Acute renal failure, resolved. PLAN: At the present, the patient probably took an overdose of some of the medications without even realizing. She states she did not want to commit any suicide or anything. She is a bipolar person that is on lithium. All the numbers are getting much better. The patient is getting some IV iron. We are going to get a psych evaluation before discharging her home in the morning to be sure everything is fine. Be sure she understands and became how she takes her medications and have her follow up with her PCP. All of this was discussed with the patient. All questions were answered to satisfaction. Like I said, we are going to get a psych evaluation, monitor her in the morning. If stable, she is going to go home. Job#: [id number] PATTI
[2017-10-19] MEDS: CEFTRIAXONE SOD 1 GM VIAL IV SCH (13:00)
[2017-10-20] VITALS: BP 158/85
[2017-10-20] MEDS ORDERED: CLONIDINE HCL 0.1 MG TAB PO SCH (00:30)
[2017-10-20] MEDS ORDERED: CLONIDINE HCL 0.1 MG TAB PO PRN (01:45)
[2017-10-20 04:00] VITALS: BP 150/72
[2017-10-20 06:43] LABS: ANION GAP 13.5 mmol/L (8-16); BLOOD UREA NITROGEN 5 mg/dL (7-26); BUN/CREATININE RATIO 7 (6-25); CALCIUM 9.8 mg/dL (8.4-10.2); CARBON DIOXIDE 23 mmol/L (22-29); CHLORIDE 113 mmol/L (98-107); CREATININE, SERUM 0.71 mg/dL (0.57-1.11); EST GLOMERULAR FILTRATION RATE > 60 ML/MIN (60-); GLUCOSE 136 mg/dL (74-118); POTASSIUM 3.5 mmol/L (3.5-5.1); SODIUM 146 mmol/L (136-145)
[2017-10-20 08:00] VITALS: BP 133/81
[2017-10-20] MEDS ORDERED: METOPROLOL SUCCINATE 25 MG TAB XL PO SCH (09:00)
[2017-10-20] MEDS: SODIUM FERRIC GLUCONATE COMPLX 125 MG in SODIUM CHLORIDE 0.9% 100 ML 100 ML IV SCH (09:27)
[2017-10-20] MEDS ORDERED: POTASSIUM CHLORIDE 10 MEQ TABCR PO ONE (11:00)
--- NOTE | 2017-10-20 11:08 | Discharge Summary ---
Ms. Villegas is a 62-year-old female with a history of hypertension, hyperlipidemia, bipolar disorder, chronic back pain who is taking several medications at home and came to the emergency room with a week history of hallucinations and changes in mental status. Both got worse; so, brought her to the urgent care on Monday. At that time, she was hypotensive, she had worsening acute renal failure. At the present time, she was transferred to the floor. She is doing much better. Renal function is fine. Patient looks awake and alert. She was evaluated by neurology, nephrology, and infectious disease. PHYSICAL EXAMINATION GENERAL: She is awake and alert. She wants to go home. VITALS: Temperature is 96.9, blood pressure 150/72. HEART: Regular rate. LUNGS: Clear to auscultation. ABDOMEN: Soft. BLOOD WORK: Potassium 3.5, creatinine is 0.71, and glucose 136. White count is 10.6, hemoglobin 8.9, and hematocrit 28.4. RPR was negative. Essentially, workup was negative for her. Blood culture and urine culture were negative. DISCHARGE DIAGNOSES 1. Changes in mental status, resolved. 2. Hypotension, resolved. 3. Bipolar disorder. 4. Acute renal failure, resolved. 5. Diabetes. 6. Hypertension. 7. Hyperlipidemia. 8. Chronic back pain. PLAN: At the present time, we are waiting for psychiatrist to see patient; and if he clears her and if he is okay with all the consultants, patient is going to go home where she is going to continue her home medications. Psych medication as per psychiatrist. She needs followup with her PCP in 1 weeks and with the consultants as directed by them. All this was discussed with patient. All questions were answered to satisfaction. MARTHA RIVERS MD Job#: [id number]
[2017-10-20] MEDS: CEFTRIAXONE SOD 1 GM VIAL IV SCH (11:51)
[2017-10-20 12:00] VITALS: BP 145/97
[2017-10-20 15:50] VITALS: BP 133/81
[2017-10-20 16:00] VITALS: BP 152/93
[2017-10-20] MEDS ORDERED: SEROQUEL25 MG PO (16:08)
--- NOTE | 2017-10-20 21:17 | Consultation ---
DATE OF CONSULTATION: October 20, 2017 PSYCHIATRIC CONSULTATION REASON FOR CONSULTATION: To evaluate patient's history of mood, bipolar. HISTORY OF PRESENTING ILLNESS: The patient is a 62-year-old female admitted to the hospital for acute renal failure, altered mental status and hypertension. Psychiatric consultation is called to evaluate patient's psychosis and mood. As per the medical record, patient was admitted to urgent care initially. She was found to be confused for several days, hallucinating, and confusion worsened. decided to take her to the ER. She has history of diabetes, hypertension, depression, bipolar, hyperlipidemia. Upon evaluation today, patient is found to be in her room. She is alert, awake and oriented to situation. She is doing better. She is not confused. Patient states that she has been confused for the last few days. She sees Dr. James for bipolar and has been on lithium for 2 years. Her lithium level in the hospital is found to be 1.7. She is also taking Effexor. Patient reports feeling some depression at this time she is not any of her medication. She denies any anxiety. She denies any suicidal ideation. She denies any hallucination. Patient reports intermittent insomnia at home for which she takes some medication for that. She denies any appetite issue. I spoke to patient's , who reports that patient is doing much better. She is not confused. She has improved significantly. Addressed concern and questions regarding her medication and recommend her to follow with outpatient psychiatry. PAST PSYCHIATRIC HISTORY: Patient with known history of bipolar and depression for many years. She denies past suicide attempt. She denies alcohol and drug use. FAMILY HISTORY: Patient denies. SOCIAL HISTORY: Patient states she lives with her . MENTAL STATUS EXAMINATION: The patient is an elderly female. She is alert, awake and oriented to situation. Mood is somewhat depressed. Denies any suicidal or homicidal ideation. Denies any hallucination. Speech is regular rate and rhythm. No delusion or paranoia elicited. Insight and judgment are fair. Memory appears to be grossly intact. Thought process is concrete. Affect is mood. CURRENT MEDICATION 1. Ceftriaxone. 2. . 3. Sodium chloride. 4. Metoprolol. 5. Clonidine. ASSESSMENT: Bipolar disorder, mixed, moderate. PLAN 1. Add Seroquel 25 mg p.o. nightly. 2. Recommend followup with outpatient psychiatry. 3. Discussed with nursing staff and family members. 4. Recommend to discontinue lithium and Effexor. Thank you for this consultation. Patient is cleared from psychiatry standpoint. Dictated by: ITZ Valerio Job#: [id number] EV
[2017-10-21] MEDS ORDERED: METOPROLOL SUCCINATE 25 MG TAB XL PO SCH (09:00)
== END 2017-10-20 19:34 | disposition home or self-care (01) | DRG 917 ==
LOC: FSED 11:46 → ICU 17:36 → MED/SURG2 10-18 18:35
PROVIDERS: ADMIT Internal Medicine; ATTEND Internal Medicine
CPT/HCPCS: 36415; 36556; 70450; 71045; 72125; 72128; 72131; 74470; 76770; 76937; 80048; 80053; 80061; 80076; 80178; 80307; 80329; 81003; 81015; 82140; 82553; 82570; 82607; 82728; 82948; 83540; 83735; 84100; 84156; 84300; 84443; 84466; 84484; 85025; 85610; 85730; 86592; 87040; 87086; 99284; C1751; J0690; J0696; J2310; J2916; J3370; J7030

== ENCOUNTER → 2017-11-08 | Day surgery (SDC) | payer BC ==
[2017-11-03 12:27] LABS: BASOPHILS # (AUTO) 0.1 (0.0-0.1); BASOPHILS % 1.6 % (0.0-1.0); EOSINOPHILS # (AUTO) 0.2 (0.0-0.4); EOSINOPHILS % 2.3 % (0.0-6.0); HEMATOCRIT 37.7 % (34.2-44.1); HEMOGLOBIN 11.9 g/dL (12.0-16.0); LYMPHOCYTES # (AUTO) 3.7 (1.0-3.2); LYMPHOCYTES % 52.3 % (18.0-39.1); MEAN CORPUSCULAR HEMOGLOBIN 27.7 pg (28-32); MEAN CORPUSCULAR HGB CONC 31.6 g/dL (31-35); MEAN CORPUSCULAR VOLUME 87.9 fL (81-99); MONOCYTES # (AUTO) 0.6 (0.2-0.8); MONOCYTES % 8.3 % (4.4-11.3); NEUTROPHILS # (AUTO) 2.5 (2.1-6.9); NEUTROPHILS % 35.4 % (38.7-80.0); PLATELET COUNT 387 x10e3/uL (140-360); RED BLOOD COUNT 4.29 x10e6/uL (3.6-5.1); RED CELL DISTRIBUTION WIDTH 14.1 % (11.7-14.4)
[~2017-11-08] MED LIST changes: +FENTANYL CITRATE/PF 100MCG/2 ML INJ ONE; +HYOSCYAMINE SULFATE 0.5 MG/ML AMP ONE; +MIDAZOLAM HCL 2 MG/2 ML VIAL ONE; +PROPOFOL IV EMULSION 10 MG/ML 50 ML VIAL ONE; +SEROQUEL25 MG PO; +TYLENOL WITH C1 EACH PO
--- OUTSIDE RECORDS SUMMARY | 2017-11-08 09:29 | XMS REPORT | Continuity of Care Document ---
Author Author [facility] Organization [facility] Address [address] [place] [address] Phone Unavailable Care Team Providers Care Dry Sand Molder Name Role Phone ENMA SEE MD PCP Insurance Providers Guarantor Wolfgang Spencer Address [address] [place] [address] Email [email or web address] [email or web address] [employer] Exchange Policy Number [id number] Subscriber's Name Wolfgang Spencer Relationship 18 Self / Same As Patient Group Number [id number] Group Name UNEMPLOYED Effective Date 17 Expiration Date 16 Advance Directives Directive Response Recorded Date/Time Does the patient have an advance directive? Yes 10/16/17 6:00pm If yes, is advance directive on file with [facility]? No 10/16/17 6:00pm If not on file with [facility] will patient provide a copy? No 10/16/17 6:00pm Do you have a Directive to Physician? No 10/16/17 1:08pm Do you have a Medical Power of Living Coach? No 10/16/17 1:08pm Do you have an out of hospital Do Not Resuscitate Order? No 10/16/17 1:08pm Do you have any special needs we should be aware of? No 10/16/17 1:08pm Do you have a support person here with you today? Yes 10/16/17 1:08pm Did patient receive Notice of Privacy Practices? Yes 10/16/17 1:08pm Did patient receive patient rights and responsibilities? Yes 10/16/17 1:08pm Problems Medical Problem Onset Date Status Acute renal failure Unknown Altered mental status Unknown Hypotension Unknown Medications Current Home Medications Medication Dose Units Route Directions Days Qty Instructions Start Date Acetaminophen With Codeine (Tylenol With Codeine #3 Tablet) 1 Each Tablet 300 Mg Oral Atenolol 50 Mg Tablet 50 Mg Oral Daily Clopidogrel Bisulfate (Plavix) 75 Mg Tablet 75 Mg Oral Daily 30 Tab Doxepin 50 Mg Oral As Needed as needed for Sleep [place] 300 Mg Oral Twice A Day Losartan Potassium 25 Mg Tablet 50 Mg Oral Daily Metformin Hcl 500 Mg Tablet 500 Mg Oral Twice A Day 60 Tab Pantoprazole Sodium (Protonix) 40 Mg Tablet.dr 40 Mg Oral Daily Quetiapine Fumarate (Seroquel) 25 Mg Tablet 25 Mg Oral Bedtime 20 Tab Simvastatin 20 Mg Tablet 20 Mg Oral Today At 9:00PM Vit B12 1 Injection Every 2 Wks Vit D 1 Tab Oral Daily Past Home Medications Medication Directions Ordered Status Acetaminophen/Hydrocodone (Lortab 7.5) 1 Ea Tab, 1 Ea G Tube Every 4 Hours as needed Discontinued Aspirin 81 Mg Tab.chew, 81 Mg Oral Daily Discontinued Enoxaparin Sodium (Lovenox) 40 Mg/0.4 Ml [...] Mg Tablet, 0.25 Mg Oral Bedtime Discontinued Venlafaxine Hcl (Effexor Xr) 150 Mg Cap.sr.24h, 150 Mg Oral Daily Discontinued Social History Social History Problem Response Recorded Date/Time Onset Date Status Hx Psychiatric Problems Yes 10/16/2017 6:00pm Not Applicable Not Applicable Hx Eating Disorder No 10/16/2017 6:00pm Not Applicable Not Applicable Hx Substance Use Disorder No 10/16/2017 6:00pm Not Applicable Not Applicable Hx Depression Yes 10/16/2017 6:00pm Not Applicable Not Applicable Hx Alcohol Use No 10/16/2017 6:00pm Not Applicable Not Applicable Hx Substance Use Treatment No 10/16/2017 6:00pm Not Applicable Not Applicable Hx Physical Abuse No 10/16/2017 6:00pm Not Applicable Not Applicable Smoking Status Start Date Stop Date Former smoker Hospital Discharge Instructions No hospital discharge instruction information available. Plan of Care Discharge Date 10/20/17 7:34pm Disposition HOME, SELF-CARE Instructions/Education Provided Kidney Failure Prescriptions See Medication Section Referrals XAVIER LAM MD (Psychiatry) Order Date: 5-7 Days Entered Date: 10/20/2017 4:10pm Address: [address] [place], [place] [id number] Additional Instructions/Education Activity as tolerated. Stop all psych medictions and begin taking Seroquel 25mg every hour of sleep Follow up with Dr Alvina Lam next week. Functional Status Query Response Date Recorded Ambulation Ability Minimum Assistance October 16, 2017 10:09pm Toileting Ability Minimum Assistance October 20, 2017 6:13pm Allergies, Adverse Reactions, Alerts Allergen Type Severity Reaction Status Last Updated PLASTIC TAPE Allergy Mild RASH Active 11/24/09 Immunizations No immunization information available. Vital Signs Acute Vital Signs Vital Response Date/Time Temperature (Fahrenheit) 96.7 degrees F (97.6 - 99.5) 10/20/2017 4:00pm Pulse Pulse Rate (adult) 94 bpm (60 - 90) 10/20/2017 4:00pm Respiratory Rate 20 bpm (12 - 24) 10/20/2017 4:00pm Blood Pressure 152/93 mm Hg 10/20/2017 4:00pm Height 5 ft 4 in 10/16/2017 11:57am Weight 183.13 lb 10/17/2017 7:43am Body Mass Index 31.4 kg/m^2 10/18/2017 9:26am Results Laboratory Results Test Name Result Units Flags Reference Collection Date/Time Result Date/ Time Comments D-Dimer Quantitative (PE/DVT) 0.55 ug/mLFEU H 0.00-0.45 07/12/2017 4: 15pm 07/12/2017 4:42pm As with all in vitro diagnostic tests, the test results should be interpreted by the physician in conjunction with clinical findings and other test results. Test results are reported in NEW D-dimer units(ug/mLFEU). Lactic Acid Level 14.9 MG/DL 4.5-19.8 07/12/2017 4:26pm 07/12/2017 4: 53pm B-Type Natriuretic Peptide 12.7 pg/mL 0-100 07/12/2017 4:10pm 2017 4:53pm Troponin I 0.009 ng/mL 0-0.300 07/12/2017 6:30pm 07/12/2017 7:06pm White Blood Count 10.61 x10e3/uL 4.8-10.8 10/17/2017 6:55am 10/17/2017 7:23am Red Blood Count 3.14 x10e6/uL L 3.6-5.1 10/17/2017 6:55am 10/17/2017 7: 23am Hemoglobin 8.9 g/dL L 12.0-16.0 10/17/2017 6:55am 10/17/2017 7:23am Hematocrit 28.4 % L 34.2-44.1 10/17/2017 6:55am 10/17/2017 7:23am Mean Corpuscular Volume 90.4 fL 81-99 10/17/2017 6:55am 10/17/2017 7: 23am Mean Corpuscular Hemoglobin 28.3 pg 28-32 10/17/2017 6:55am 10/17/2017 7:23am Mean Corpuscular Hemoglobin Concent 31.3 g/dL 31-35 10/17/2017 6:55am 10/17/2017 7:23am Red Cell Distribution Width 13.2 % 11.7-14.4 10/17/2017 6:55am 2017 7:23am Platelet Count 284 x10e3/uL 140-360 10/17/2017 6:55am 10/17/2017 7: 23am Neutrophils (%) (Auto) 65.2 % 38.7-80.0 10/17/2017 6:5510/17/2017 7: 23am Lymphocytes (%) (Auto) 20.3 % 18.0-39.1 10/17/2017 6:5510/17/2017 7: 23am Monocytes (%) (Auto) 10.9 % 4.4-11.3 10/17/2017 6:55am 10/17/2017 7: 23am Eosinophils (%) (Auto) 2.7 % 0.0-6.0 10/17/2017 6:5510/17/2017 7: 23am Basophils (%) (Auto) 0.4 % 0.0-1.0 10/17/2017 6:5510/17/2017 7:23am IM GRANULOCYTES % 0.5 % 0.0-1.0 10/17/2017 6:5510/17/2017 7:23am Neutrophils # (Auto) 6.9 2.1-6.9 10/17/2017 6:5510/17/2017 7:23am Lymphocytes # (Auto) 2.2 1.0-3.2 10/17/2017 6:5510/17/2017 7:23am Monocytes # (Auto) 1.2 H 0.2-0.8 10/17/2017 6:5510/17/2017 7:23am Eosinophils # (Auto) 0.3 0.0-0.4 10/17/2017 6:5510/17/2017 7:23am Basophils # (Auto) 0.0 0.0-0.1 10/17/2017 6:5510/17/2017 7:23am Absolute Immature Granulocyte (auto 0.05 x10e3/uL 0-0.1 10/17/2017 6: 5510/17/2017 7:23am Prothrombin Time 13.4 seconds 11.9-14.5 10/17/2017 6:5510/17/2017 7: 39am Prothromb Time International Ratio 1.10 10/17/2017 6:552017 7:39am Oral Anticoagulant Therapy INR Values: 1. Low Intensity Therapy 1.5 - 2.0 2. Moderate Intensity Therapy 2.0 - 3.0 3. High Intensity Therapy(1) 2.5 - 3.5 4. High Intensity Therapy(2) 3.0 - 4.0 5. Panic Value INR > 5.0 Activated Partial Thromboplast Time 35.1 seconds 23.8-35.5 10/17/2017 6: 55am 10/17/2017 7:39am Urine Opiates Screen POSITIVE H NEGATIVE 10/17/2017 2:00pm 10/18/2017 5:50pm This test provides only a screen. Positive results should be repeated by a confirmatory test. Urine Barbiturates Screen NEGATIVE NEGATIVE 10/17/2017 2:00pm 2017 5:50pm Urine Phencyclidine Screen NEGATIVE NEGATIVE 10/17/2017 2:00pm 2017 5:50pm Urine Amphetamines Screen NEGATIVE NEGATIVE 10/17/2017 2:00pm 2017 5:50pm Urine Methamphetamines Screen NEGATIVE NEGATIVE 10/17/2017 2:00pm 5:50pm Urine Benzodiazepines Screen POSITIVE H NEGATIVE 10/17/2017 2:00pm 5:50pm This test provides only a screen. Positive results should be repeated by a confirmatory test. Urine Cocaine Screen NEGATIVE NEGATIVE 10/17/2017 2:00pm 10/18/2017 5 :50pm Urine Cannabinoids Screen NEGATIVE NEGATIVE 10/17/2017 2:00pm 2017 5:50pm THESE RESULTS ARE FOR MEDICAL TREATMENT ONLY *THIS REPORT CONTAINS UNCONFIRMED SCREENING RESULTS* POSITIVE RESULTS WILL BE CONFIRMED BY REFERENCE LAB UPON REQUEST CUT-OFF DRUG CLASS CONCENTRATION ng/mL Amphetamines 1000 Methamphetamines 1000 Cocaine 300 Opiate 300 Phencyclidine 25 Cannabinoid 50 Barbiturates 300 Benzodiazepine 300 Methadone 300 Urine Methadone Screen NEGATIVE NEGATIVE 10/17/2017 2:00pm 2017 5:50pm THESE RESULTS ARE FOR MEDICAL TREATMENT ONLY *THIS REPORT CONTAINS UNCONFIRMED SCREENING RESULTS* POSITIVE RESULTS WILL BE CONFIRMED BY REFERENCE LAB UPON REQUEST CUT-OFF DRUG CLASS CONCENTRATION ng/mL Amphetamines 1000 Methamphetamines 1000 Cocaine Metabolite 300 Opiate 300 Phencyclidine 25 Cannabinoid 50 Barbiturates 300 Benzodiazepine 300 Methadone 300 Urine Eosinophils NONE SEEN NONE SEEN 10/17/2017 2:00pm 10/18/2017 6: 27pm Urine Random Total Protein 9.8 mg/dL 1-14 10/17/2017 2:00pm 10/18/2017 6:09pm Urine Random Sodium 98 mmol/L 10/17/2017 2:00pm 10/18/2017 6:09pm Urine Creatinine 27.62 mg/dL L 47-110 10/17/2017 2:00pm 10/18/2017 6: 09pm Sodium Level 146 mmol/L H 136-145 10/20/2017 5:50am 10/20/2017 6:45am Potassium Level 3.5 mmol/L 3.5-5.1 10/20/2017 5:50am 10/20/2017 6:45am Chloride Level 113 mmol/L H 98-107 10/20/2017 5:50am 10/20/2017 6:45am Carbon Dioxide Level 23 mmol/L 22-10/20/2017 5:50am 10/20/2017 6: 45am Anion Gap 13.5 mmol/L 8-10/20/2017 5:50am 10/20/2017 6:45am Blood Urea Nitrogen 5 mg/dL L 7-10/20/2017 5:50am 10/20/2017 6:45am Creatinine 0.71 mg/dL 0.57-1.11 10/20/2017 5:50am 10/20/2017 6:45am BUN/Creatinine Ratio 7 610/20/2017 5:50am 10/20/2017 6:45am Estimat Glomerular Filtration Rate > 60 ML/MIN 6010/20/2017 5:50am 6:45am Ranges were taken from the National Kidney Disease Education Program and the National Kid[employer] Foundation literature. Reference ranges: 60 or greater: Normal 16-59 (for 3 consecutive months): Chronic kidney disease 15 or less: Kidney failure Glucose Level 136 mg/dL H 74-118 10/20/2017 5:50am 10/20/2017 6:45am Calcium Level 9.8 mg/dL 8.4-10.2 10/20/2017 5:50am 10/20/2017 6:45am Bedside Glucose 130 mg/dL H 70-120 10/19/2017 3:52pm 10/20/2017 7:25am Meter ID: [id number] Phosphorus Level 2.3 MG/DL 2.3-4.7 10/19/2017 5:47am 10/19/2017 7:18am Magnesium Level 1.3 MG/DL 1.3-2.1 10/19/2017 5:47am 10/19/2017 7:18am Iron Level 5 ug/dL L 50-170 10/17/2017 4:5510/17/2017 1:31pm Total Iron Binding Capacity 283 ug/dL 261-478 10/17/2017 4:552017 1:31pm Percent Iron Saturation 2 % L 15-50 10/17/2017 4:5510/17/2017 1:31pm Transferrin 202 mg/dL 180-382 10/17/2017 4:5510/17/2017 1:31pm Ferritin 84.62 ng/mL 4.63-204.00 10/17/2017 4:5510/17/2017 1:48pm Total Bilirubin 0.2 mg/dL 0.2-1.2 10/17/2017 4:5510/17/2017 5:23am Aspartate Amino Transf (AST/SGOT) 10 IU/L 5-34 10/17/2017 4:552017 5:23am Alanine Aminotransferase (ALT/SGPT) 10 IU/L 0-55 10/17/2017 4:55 5:23am Ammonia 75 UG/DL 31-123 10/17/2017 4:25pm 10/17/2017 4:53pm Total Protein 5.9 g/dL L 6.5-8.1 10/17/2017 4:5510/17/2017 5:23am Albumin 3.0 g/dL L 3.5-5.0 10/17/2017 4:5510/17/2017 5:23am Globulin 2.9 g/dL 2.3-3.5 10/17/2017 4:5510/17/2017 5:23am Albumin/Globulin Ratio 1.0 0.8-2.0 10/17/2017 4:5510/17/2017 5: 23am Alkaline Phosphatase 92 IU/L 40-150 10/17/2017 4:5510/17/2017 5: 23am Triglycerides Level 173 MG/DL H 0-149 10/17/2017 4:55am 10/17/2017 5: 23am Cholesterol Level 110 MD/DL 0-199 10/17/2017 4:5510/17/2017 5:23am Less than 200 mg/dL Low Risk 201 - 239 mg/dL Borderline Risk 240 mg/dl and greater High Risk LDL Cholesterol 46 MG/DL L 60-130 10/17/2017 4:55am 10/17/2017 5:23am HDL Cholesterol 29 MG/DL L 40-60 10/17/2017 4:55am 10/17/2017 5:23am Cholesterol/HDL Ratio 3.8 H 3.0-3.6 10/17/2017 4:55am 10/17/2017 5: 23am Acetaminophen Level < 3 ug/mL L 10-30 10/16/2017 4:13pm 10/16/2017 5: 58pm Vitamin B12 Level 1173 pg/mL H 213-816 10/17/2017 4:55am 10/17/2017 4: 26pm Thyroid Stimulating Hormone (TSH) 0.036 uIU/mL L 0.350-4.940 10/17/2017 4 :55am 10/17/2017 4:17pm Rapid Plasma Reagin Non Reactive Non Reactive 10/17/2017 4:25pm 10/18 6:57am Performed at: [facility] [id number] Transit Specialist: Ankur Davis MD, Phone: [phone] [place] Level 0.7 mmol/L 0.6-1.2 10/18/2017 12:20pm 10/19/2017 7:59am Detection Limit=0.1 <0.1 indicates None Detected Performed at: [facility] [address] [id number] Transit Specialist: Ankur Davis MD, Phone: [phone] Microbiology Results Procedure Source Organism/Result Collection Date/Time Result Date/Time Result Status Blood Culture Blood NO GROWTH AFTER 72 HOURS 2:20pm 10/19/2017 5:37pm Preliminary Procedures Procedure Status Date Provider(s) EGD BIOPSY SINGLE/MULTIPLE Completed 09/20/17 TRAVIS WEBBER MD X-ray of chest, two views Active 07/12/17 SCOTT ALBERTS MD Computed tomography of chest with contrast Active 07/12/17 SCOTT ALBERTS MD US thyroid Active 07/12/17 SCOTT ALBERTS MD Ultrasound guidance for vascular access Active 10/17/17 MARTHA RIVERS MD Ultrasound, renal Active 10/17/17 BAN ANGEL MD Computed tomography of brain without radiopaque contrast Active 10/17/17 YEMI LYLE M.D. Encounters Encounter Location Arrival/Admit Date Discharge/Depart Date Attending Provider Discharged [facility]patient [facility] 10/16/17 5:36pm 10/20/17 7:34pm MARTHA RIVERS MD Registered Surgical Day Care [facility] 09/20/17 11:38am TRAVIS WEBBER MD Departed Emergency Room [facility] 07/12/17 3:48pm 11:02pm SCOTT ALBERTS MD Registered Clinic [facility] 03/10/17 12:05pm ENMA SEE MD
--- OUTSIDE RECORDS SUMMARY | 2017-11-08 09:29 | XMS REPORT | Clinical Summary ---
Author Author [facility] Organization [facility] Address Unknown Phone Unavailable Care Team Providers Care Electrical Continuity Tester Name Role Phone Asked, Given PCP Unavailable [...] Not on file Implants Implanted Type Area Ambulatory Care Device Expiration Model / Identifier Date Serial / Lot Device Vasclr Clsr Vasoactive Surgical DAIG EDSON 08/02/2016 [id number] / Intstnl Peptd 6fr Angio-Seal - Implants; / [id number] Expanders; [id number] Implanted: 11/04/2015 (Quantity not Extenders; on file) Surgical Wires Results Not on fileafter 11/07/2016 Insurance Payer Benefit Subscriber ID Type Phone Address Plan / Group [facility] xxxxxxxxx HMO/PPO [employer] CHOICE/CHO ICE + U[employer] EXCHANGE [facility] xxxxxxxxx Exchange [employer] Home: [id number] [place] [id number]
--- NOTE | 2017-11-08 12:47 | Operative Report ---
DATE OF PROCEDURE: November 08, 2017 REFERRING PHYSICIAN: Dr. Leobardo Tracy. PROCEDURE PERFORMED: Colonoscopy and polypectomy. INDICATIONS FOR COLONOSCOPY: Colorectal cancer screening, personal history of colon polyps, suboptimal prep on previous colonoscopy. MEDICATION: Patient was done under MAC. Please see anesthesiologist's note. PROCEDURE: With patient in the left lateral decubitus position, the flexible fiberoptic Olympus colonoscope was inserted into the rectum with ease and advanced all the way to the cecum. It was then withdrawn slowly. Mucosa overlying the cecum and ascending colon appeared to be within normal limits. Some diverticular disease was noted in the colon, more prominent in the transverse colon. One polyp was hot biopsied from the transverse colon. One polyp was snared from the descending colon. One polyp was snared from the sigmoid colon. Two polyps were hot biopsied and one polyp was snared from the rectum. The scope was then retroflexed into the distal rectum and small internal hemorrhoids were noted, none of which was actively bleeding. The scope was then straightened out. It was subsequently withdrawn. Patient tolerated the procedure well. IMPRESSION: 1. Diverticulosis. 2. Transverse colon polyp hot biopsied. 3. Descending colon polyp snared. 4. Sigmoid colon polyp snared. 5. Rectal polyps times 3, 1 snared and 2 hot biopsied. 6. Internal hemorrhoids, none actively bleeding. PLAN: Follow up histology. Initiate high-fiber low-fat diet. Initiate high-fiber supplement. Patient will need a followup colonoscopy in 3 years. Job#: [id number] EV cc:LEOBARDO TRACY MD
== END | disposition home or self-care (01) ==
LOC: OR 09:26
PROVIDERS: ATTEND Internal Medicine Gastroenterology
DX: Z12.11 Encounter for screening for malignant neoplasm of colon (principal); D12.3 Benign neoplasm of transverse colon; D12.4 Benign neoplasm of descending colon; D12.5 Benign neoplasm of sigmoid colon; K62.1 Rectal polyp; K57.30 Diverticulosis of large intestine without perforation or abscess without bleeding; K64.8 Other hemorrhoids; K20.9 Esophagitis, unspecified; K29.70 Gastritis, unspecified, without bleeding; K21.9 Gastro-esophageal reflux disease without esophagitis; D64.9 Anemia, unspecified; E78.00 Pure hypercholesterolemia, unspecified; I10 Essential (primary) hypertension; E11.9 Type 2 diabetes mellitus without complications; F31.9 Bipolar disorder, unspecified; Z91.19 Patient's noncompliance with other medical treatment and regimen; Z01.810 Encounter for preprocedural cardiovascular examination; Z01.812 Encounter for preprocedural laboratory examination; Z79.02 Long term (current) use of antithrombotics/antiplatelets; Z79.84 Long term (current) use of oral hypoglycemic drugs; Z68.30 Body mass index [BMI] 30.0-30.9, adult; Z87.891 Personal history of nicotine dependence
CPT/HCPCS: 36415; 45384; 45385; 85025; 93005; J1980; J2250; 45378

== ENCOUNTER 2017-12-11 17:32 | Emergency (ER) | payer BC ==
[~2017-12-11] VITALS: Ht 162.6 cm; Wt 81.2 kg
[~2017-12-11 17:32] MED LIST changes: -FENTANYL CITRATE/PF 100MCG/2 ML INJ ONE; -HYOSCYAMINE SULFATE 0.5 MG/ML AMP ONE; -MIDAZOLAM HCL 2 MG/2 ML VIAL ONE; -PROPOFOL IV EMULSION 10 MG/ML 50 ML VIAL ONE
[2017-12-11] MEDS ORDERED: VITAMIN B-121000 MCG PO (18:07)
[2017-12-11] MEDS ORDERED: GEODON20 MG PO (18:07)
[2017-12-11] MEDS ORDERED: CYCLOBENZAPRINE10 MG PO (18:07)
[2017-12-11] MEDS ORDERED: NAPROXEN250 MG PO (18:07)
[2017-12-11] MEDS ORDERED: ASPIR 8181 MG PO (18:07)
[2017-12-11] MEDS ORDERED: FLURAZEPAM HCL30 MG PEG (18:07)
[2017-12-11] MEDS ORDERED: VITAMIN D1000 UNI1 PO (18:07)
[2017-12-11] MEDS ORDERED: CLONAZEPAM0.5 MG PO (18:07)
== END 2017-12-11 19:35 | disposition home or self-care (01) ==
LOC: FSED 17:32
DX: R60.0 Localized edema (principal); T88.7XXA Unspecified adverse effect of drug or medicament, initial encounter; I10 Essential (primary) hypertension; E11.9 Type 2 diabetes mellitus without complications; E78.5 Hyperlipidemia, unspecified; F31.9 Bipolar disorder, unspecified
CPT/HCPCS: 80053; 81003; 85025; 99283

== ENCOUNTER → 2018-01-10 | Outpatient (CLI) | payer BC ==
[~2018-01-10] MED LIST changes: +ASPIR 8181 MG PO; +CLONAZEPAM0.5 MG PO; +CYCLOBENZAPRINE10 MG PO; +FLURAZEPAM HCL30 MG PEG; +GEODON20 MG PO; +NAPROXEN250 MG PO; +VITAMIN B-121000 MCG PO; +VITAMIN D1000 UNI1 PO
--- NOTE | 2018-01-10 18:00 | Diagnostic Imaging Report ---
PROCEDURE:X-RAY RIGHT FOOT, COMPLETE COMPARISON:None. INDICATIONS:foot injury FINDINGS: There are no acute fractures, dislocations, lytic or blastic lesions. Fixation screw across the fourth proximal interphalangeal joint. No evidence of hardware fracture or loosening. Deformity of the distal aspect of the fifth proximal phalanx may also reflect post-surgical changes. Deformity of the distal fibula may be related to remote trauma. Plantar calcaneal spur. The bones are well-mineralized. Scattered mild degenerative changes of the foot. The soft-tissues are unremarkable. CONCLUSION: No acute osseous abnormalities. Dictated by: Cresencio aRmesh M.D. on 01/10/2018 at 18:06 Electronically approved by: Cresencio Ramesh M.D. on 01/10/2018 at 18:06
== END ==
LOC: RAD 16:51
PROVIDERS: ATTEND Family Medicine
DX: M79.671 Pain in right foot (principal)

== ENCOUNTER → 2021-03-02 | Day surgery (SDC) | payer BC ==
[2021-02-15 14:02] LABS: BASOPHILS # (AUTO) 0.1 (0.0-0.1); BASOPHILS % 1.5 % (0.0-1.0); EOSINOPHILS # (AUTO) 0.2 (0.0-0.4); EOSINOPHILS % 2.4 % (0.0-6.0); HEMATOCRIT 41.1 % (34.2-44.1); HEMOGLOBIN 12.5 g/dL (12.0-16.0); LYMPHOCYTES # (AUTO) 2.6 (1.0-3.2); LYMPHOCYTES % 33.7 % (18.0-39.1); MEAN CORPUSCULAR HEMOGLOBIN 27.2 pg (28-32); MEAN CORPUSCULAR HGB CONC 30.4 g/dL (31-35); MEAN CORPUSCULAR VOLUME 89.5 fL (81-99); MONOCYTES # (AUTO) 0.5 (0.2-0.8); MONOCYTES % 6.3 % (4.4-11.3); NEUTROPHILS # (AUTO) 4.4 (2.1-6.9); NEUTROPHILS % 55.7 % (38.7-80.0); PLATELET COUNT 355 x10e3/uL (140-360); RED BLOOD COUNT 4.59 x10e6/uL (3.6-5.1); RED CELL DISTRIBUTION WIDTH 14.9 % (11.7-14.4)
[~2021-03-02] MED LIST changes: +BENZTROPINE MESY1 MG PO; +EFFEXOR XR 3737.5 MG PO; +FARXIGA10 MG PO; +METOPROLOL SUCC50 MG PO; +TAPAZOLE5 MG PO; +VASCEPA1 GM PO
[2021-03-02 16:15] VITALS: BP 120/84
== END | disposition home or self-care (01) ==
LOC: OR 11:31
PROVIDERS: ATTEND Internal Medicine Gastroenterology
DX: Z09 Encounter for follow-up examination after completed treatment for conditions other than malignant neoplasm (principal); K62.1 Rectal polyp; K57.30 Diverticulosis of large intestine without perforation or abscess without bleeding; K64.8 Other hemorrhoids; K21.9 Gastro-esophageal reflux disease without esophagitis; E11.9 Type 2 diabetes mellitus without complications; I10 Essential (primary) hypertension; F41.9 Anxiety disorder, unspecified; F31.9 Bipolar disorder, unspecified; Z01.810 Encounter for preprocedural cardiovascular examination; Z01.812 Encounter for preprocedural laboratory examination; Z20.822 Contact with and (suspected) exposure to COVID-19; Z79.82 Long term (current) use of aspirin; Z79.84 Long term (current) use of oral hypoglycemic drugs
CPT/HCPCS: 36415 ×2; 45380; 82948; 85025; 93005; U0002; 45378

== ENCOUNTER → 2022-08-09 | Outpatient (CLI) | payer MEDICARE | LOC: MAMMO 12:43 | PROVIDERS: ATTEND Family Medicine | DX: Z12.31 Encounter for screening mammogram for malignant neoplasm of breast (principal); Z13.820 Encounter for screening for osteoporosis | CPT/HCPCS: 77067; 77080 ==